=== PATIENT | male | born 1995 | race Caucasian/White ===

== ENCOUNTER 2019-01-12 16:47 | Inpatient (IN) | payer MEDICAID, SELFPAY ==
[2019-01-12 17:22] LABS: Basophils % 0.7 % (0-1.3); Hematocrit 50.7 % (39.6-49.0); Lymphocytes % 17.1 % (15.3-44.8); MPV 6.8 fL (7.6-11.3); Protime INR 1.02; RBC Red Blood Cell Count 5.53 M/uL (4.33-5.43)
[2019-01-12] MEDS ORDERED: NA CHLORIDE 0.9% 1,000 ML ONE ×2 (17:36→18:36)
--- NOTE | 2019-01-12 17:41 | EKG ---
Test Date: 2019-01-12 Test Time: 17:13:29 [address] Person: LEONARDO MEASUREMENT RESULTS: Intervals: Rate: 117 ID: [id number] QRSD: 78 QT: 324 QTc: 451 Ridge: P: 71 ID: [id number] QRS: 96 T: 4 INTERPRETIVE STATEMENTS: Sinus tachycardia Right atrial enlargement Rightward axis Septal infarct, age undetermined T wave abnormality, consider inferior ischemia Abnormal ECG No previous ECG available for comparison Electronically Signed On 01-12-19 17:41:08 CDT by Kevin Johnson
[2019-01-12 17:43] LABS: Arterial Blood Carboxyhemoglob 1.8 % (0-1.5); Blood Gas Oxyhemoglobin 94.9 % (94-97); Blood O2 Saturation 97.9 % (92-98.5)
[2019-01-12 17:44] LABS: ALT/SGPT 26 U/L (12-78); AST/SGOT 12 U/L (15-37); Albumin 4.8 g/dL (3.4-5.0); Alkaline Phosphatase 91 U/L (45-117); BUN Blood Urea Nitrogen 16 mg/dL (7-18); Bilirubin Direct 0.2 mg/dL (0-0.2); Bilirubin Total 0.7 mg/dL (0.2-1.0); Glucose Level 350 mg/dL (74-106); Magnesium 1.6 mg/dL (1.8-2.4); NT PRO-BNP 8 pg/mL (<125); Potassium 4.4 mmol/L (3.5-5.1); Protein, Total 8.2 g/dL (6.4-8.2); Sodium Level 133 mmol/L (136-145); Troponin (Emerg Dept Use Only) < 0.02 ng/mL (0.0-0.045)
[2019-01-12 17:46] LABS: Bicarbonate 12 mmol/L (21-32)
--- NOTE | 2019-01-12 17:57 | RAD REPORT ---
EXAM DESCRIPTION: RAD - Chest Single View - 01/12/2019 5:47 pm CLINICAL HISTORY: MD whitman Chest pain. COMPARISON: <Comparisons> FINDINGS: Portable technique limits examination quality. The lungs are grossly clear. The heart is normal in size. No displaced fractures. IMPRESSION: No acute intrathoracic process suspected.
--- NOTE | 2019-01-12 18:09 | ER ---
Nurse's Notes [facility] Name: Wei Hyde Age: 23 yrs Sex: Male : 1995 Arrival Date: 01/12/2019 Time: 16:50 Bed 3 Private MD: Diagnosis: Weakness;Acidosis;Diabetes mellitus due to underlying condition with ketoacidosis without coma;Hypomagnesemia Presentation: 01/12 16:50 Presenting complaint: Patient states: dizziness, fatigue x 2 days. Transition of care: sv patient was not received from another setting of care. Onset of symptoms was January 10, 2019. Risk Assessment: Do you want to hurt yourself or someone else? Patient reports no desire to harm self or others. Care prior to arrival: None. 16:50 Method Of Arrival: Ambulatory sv 16:50 Acuity: SULEIMAN 2 sv 17:15 Initial Sepsis Screen: Does the patient meet any 2 criteria? RR > 20 per min. HR > 90 aa5 bpm. Yes Does the patient have a suspected source of infection? No. Patient's initial sepsis screen is negative. Triage Assessment: 16:50 General: Appears in no apparent distress. uncomfortable, ill, slender, Behavior is sv calm, cooperative, appropriate for age. Neuro: Level of Consciousness is awake, alert, obeys commands, Gait is steady, Reports dizziness. Respiratory: Respiratory effort is even, unlabored, Respiratory pattern is tachypnea. Historical: - Allergies: 16:54 No Known Allergies; sv - PMHx: 16:54 Diabetes - IDDM; sv - PSHx: 16:54 None; sv - Immunization history:: Adult Immunizations unknown. - Social history:: Patient uses street drugs, marijuana. - Family history:: not pertinent. - Ebola Screening: : No symptoms or risks identified at this time. Screenin:15 Abuse screen: Denies threats or abuse. Nutritional screening: No deficits noted. aa5 Tuberculosis screening: No symptoms or risk factors identified. Fall Risk None identified. Assessment: 17:15 General: Appears uncomfortable, Behavior is calm, cooperative. Pain: Complains of pain aa5 in right leg and left leg Pain does not radiate. Pain currently is 10 out of 10 on a pain scale. Quality of pain is described as stabbing, Pain began "while ago" Is continuous. Neuro: Level of Consciousness is awake, alert, obeys commands, Oriented to person, place, time, situation. Cardiovascular: Heart tones S1 S2 present Rhythm is sinus tachycardia. Respiratory: Airway is patent Respiratory effort is even, unlabored, Respiratory pattern is tachypnea Breath sounds are clear bilaterally. GI: Abdomen is flat, non-distended, Bowel sounds present X 4 quads. Abd is soft and non tender X 4 quads. Reports nausea, Patient currently denies vomiting. : No signs and/or symptoms were reported regarding the genitourinary system. EENT: No signs and/or symptoms were reported regarding the EENT system. Derm: Skin is pink, warm \\T\\ dry. Musculoskeletal: Range of motion: intact in all extremities. 17:40 Reassessment: Patient is alert, oriented x 3, equal unlabored respirations, skin aa5 warm/dry/pink. Pt c/o leg pain, was notified. . 18:39 Reassessment: Patient is alert, oriented x 3, equal unlabored respirations, skin aa5 warm/dry/pink. Dr. Vides at bedside. . 19:30 Reassessment: Patient complaint of pain to bilateral legs, 8/10 on pain scale. lp1 Vital Signs: 16:54 BP 134 / 101; Pulse 138; Resp 28; Temp 97.4; Pulse Ox 99% ; Weight 61.23 kg; Height 5 sv ft. 11 in. (180.34 cm); 17:50 BP 127 / 99; Pulse 120; Resp 28 S; Pulse Ox 100% on R/A; aa5 18:15 BP 130 / 98; Pulse 116; Resp 26 S; Pulse Ox 100% on R/A; aa5 18:45 BP 135 / 97; Pulse 103; Resp 24 S; Pulse Ox 100% on R/A; Pain 10/10; aa5 19:30 BP 129 / 96; Pulse 115; Resp 22; Pulse Ox 100% on R/A; Pain 8/10; lp1 16:54 Body Mass Index 18.83 (61.23 kg, 180.34 cm) sv ED Course: 16:50 Patient arrived in ED. sv 16:53 Triage completed. sv 16:54 Arm band placed on. sv 16:56 Cuco Romero MD is Attending Physician. [facility] 17:02 Zulay Mckoy, RN is Primary Nurse. aa5 17:15 Patient has correct armband on for positive identification. Placed in gown. Bed in low aa5 position. Call light in reach. Side rails up X2. hall monitor on. Pulse ox on. NIBP on. 17:22 EKG done, by medical surgical tech. reviewed by Cuco Romero MD. 3 17:22 Initial lab(s) drawn, by il, sent to lab. Inserted saline lock: 20 gauge in right em1 forearm, using aseptic technique. Blood collected. 17:48 XRAY Chest (1 view) In Process Unspecified. EDMS 18:05 Quan Armando MD is Hospitalizing Provider. deana 18:48 Inserted saline lock: 20 gauge in left forearm, using aseptic technique. aa5 19:00 No provider procedures requiring assistance completed. aa5 19:02 Report given to RIAZ Garrido and RIAZ Pringle. aa5 19:34 Patient admitted, IV remains in place. lp1 Administered Medications: 17:40 Drug: NS 0.9% 1000 ml Route: IV; Rate: 1 bolus; Site: right forearm; aa5 18:30 Follow up: IV Status: Completed infusion; IV Intake: 1000ml aa5 17:59 CANCELLED (Duplicate Order): Insulin Regular Human 10 units IVP once deana 18:39 Drug: Insulin Drip - (Insulin Regular Human 100 units, NS 0.9% 100 ml) {Co-Signature: aa5 ph (Stephanie Wood RN).} Route: IV; Rate: 5 units/hr; Site: right forearm; 18:39 Follow up: Infusion started at 5units/hr aa5 19:19 Follow up: IV Status: Infusion continued upon admission lp1 18:48 Drug: NS 0.9% 1000 ml Route: IV; Rate: 125 ml/hr; Site: left forearm; aa5 19:19 Follow up: IV Status: Infusion continued upon admission lp1 18:48 Drug: Magnesium Sulfate 2 grams Route: IVPB; Infused Over: 2 hrs; Site: left forearm; aa5 19:19 Follow up: IV Status: Infusion continued upon admission lp1 19:29 Drug: morphine 4 mg Route: IVP; Site: right forearm; lp1 19:35 Follow up: Response: Medication administered at discharge. lp1 19:29 Drug: Zofran 4 mg Route: IVP; Site: right forearm; lp1 19:35 Follow up: Response: No adverse reaction; Medication administered at discharge. lp1 Intake: 18:30 IV: 1000ml; Total: 1000ml. aa5 Outcome: 18:08 Decision to Hospitalize by Provider. deana 19:34 Admitted to ICU accompanied by nurse, via stretcher, room 2, on monitor, with chart, lp1 Report called to Jovana Dalton RN 19:34 critical 19:34 Instructed on the need for admit. 19:43 Patient left the ED. lp1 Signatures: Dispatcher [employer] EDJackie Sosa, RN RN Cuco Justin MD MD cha Martinez, Eric em1 uZlay Mckoy RN RN aa5 Yary Reyna RN RN lp1 Katarzyna Koroma 3 Stephanie Wood RN ph
--- NOTE | 2019-01-12 18:09 | EDPHYS ---
Physician Documentation [facility] Name: Wei Hyde Age: 23 yrs Sex: Male : 1995 Arrival Date: 01/12/2019 Time: 16:50 Bed 3 Private MD: ED Physician Cuco Romero HPI: 01/12 18:01 This 23 yrs old Male presents to ER via Ambulatory with complaints of deana Dizziness. 18:01 The patient presents with dizziness, feeling faint, generalized weakness. Onset: The deana symptoms/episode began/occurred 3 day(s) ago. Context: occurred at home. Modifying factors: The symptoms are alleviated by nothing. Associated signs and symptoms: Pertinent positives: nausea, vomiting. Severity of symptoms: At their worst the symptoms were moderate in the emergency department the symptoms are unchanged. Patient's baseline: Neuro: alert and fully oriented. The patient has not experienced similar symptoms in the past. Historical: - Allergies: 16:54 No Known Allergies; sv - PMHx: 16:54 Diabetes - IDDM; sv - PSHx: 16:54 None; sv - Immunization history:: Adult Immunizations unknown. - Social history:: Patient uses street drugs, marijuana. - Family history:: not pertinent. - Ebola Screening: : No symptoms or risks identified at this time. ROS: 18:01 Constitutional: Negative for fever, chills, and weight loss, Eyes: Negative for injury, deana pain, redness, and discharge, ENT: Negative for injury, pain, and discharge, Neck: Negative for injury, pain, and swelling, Respiratory: Negative for shortness of breath, cough, wheezing, and pleuritic chest pain, Abdomen/GI: Negative for abdominal pain, nausea, vomiting, diarrhea, and constipation, Back: Negative for injury and pain, : Negative for injury, bleeding, discharge, and swelling, MS/Extremity: Negative for injury and deformity, Skin: Negative for injury, rash, and discoloration, Neuro: Negative for headache, weakness, numbness, tingling, and seizure, Psych: Negative for depression, anxiety, suicide ideation, homicidal ideation, and hallucinations, Allergy/Immunology: Negative for hives, rash, and allergies, Endocrine: Negative for neck swelling, polydipsia, polyuria, polyphagia, and marked weight changes, Hematologic/Lymphatic: Negative for swollen nodes, abnormal bleeding, and unusual bruising. 18:01 Cardiovascular: Positive for palpitations. 18:01 Abdomen/GI: Positive for nausea and vomiting. Exam: 18:01 Constitutional: This is a well developed, well nourished patient who is awake, alert, deana and in no acute distress. Head/Face: Normocephalic, atraumatic. Eyes: Pupils equal round and reactive to light, extra-ocular motions intact. Lids and lashes normal. Conjunctiva and sclera are non-icteric and not injected. Cornea within normal limits. Periorbital areas with no swelling, redness, or edema. ENT: Nares patent. No nasal discharge, no septal abnormalities noted. Tympanic membranes are normal and external auditory canals are clear. Oropharynx with no redness, swelling, or masses, exudates, or evidence of obstruction, uvula midline. Mucous membranes moist. Neck: Trachea midline, no thyromegaly or masses palpated, and no cervical lymphadenopathy. Supple, full range of motion without nuchal rigidity, or vertebral point tenderness. No Meningismus. Chest/axilla: Normal chest wall appearance and motion. Nontender with no deformity. No lesions are appreciated. Respiratory: Lungs have equal breath sounds bilaterally, clear to auscultation and percussion. No rales, rhonchi or wheezes noted. No increased work of breathing, no retractions or nasal flaring. Abdomen/GI: Soft, non-tender, with normal bowel sounds. No distension or tympany. No guarding or rebound. No evidence of tenderness throughout. Back: No spinal tenderness. No costovertebral tenderness. Full range of motion. Male : Normal genitalia with no discharge or lesions. Skin: Warm, dry with normal turgor. Normal color with no rashes, no lesions, and no evidence of cellulitis. MS/ Extremity: Pulses equal, no cyanosis. Neurovascular intact. Full, normal range of motion. Neuro: Awake and alert, GCS 15, oriented to person, place, time, and situation. Cranial nerves II-XII grossly intact. Motor strength 5/5 in all extremities. Sensory grossly intact. Cerebellar exam normal. Normal gait. Psych: Awake, alert, with orientation to person, place and time. Behavior, mood, and affect are within normal limits. 18:01 Cardiovascular: Rate: tachycardic, Rhythm: regular, Pulses: Pulses are 4+ in bilateral radial, brachial, femoral, popliteal, posterior tibial and and dorsalis pedis arteries.. Heart sounds: normal, normal S1and S2, no S3 or S4, no murmur, no rub, no gallop, JVD: is not appreciated. Vital Signs: 16:54 BP 134 / 101; Pulse 138; Resp 28; Temp 97.4; Pulse Ox 99% ; Weight 61.23 kg; Height 5 sv ft. 11 in. (180.34 cm); 17:50 BP 127 / 99; Pulse 120; Resp 28 S; Pulse Ox 100% on R/A; aa5 18:15 BP 130 / 98; Pulse 116; Resp 26 S; Pulse Ox 100% on R/A; aa5 18:45 BP 135 / 97; Pulse 103; Resp 24 S; Pulse Ox 100% on R/A; Pain 10/10; aa5 19:30 BP 129 / 96; Pulse 115; Resp 22; Pulse Ox 100% on R/A; Pain 8/10; lp1 16:54 Body Mass Index 18.83 (61.23 kg, 180.34 cm) sv MDM: 16:56 Patient medically screened. [facility] 18:01 Data reviewed: vital signs, nurses notes, lab test result(s), EKG, radiologic studies, deana plain films. 01/12 17:03 Order name: Basic Metabolic Panel; Complete Time: 17:59 aa 01/12 17:03 Order name: CBC with Diff; Complete Time: 17:59 [facility] 01/12 17:03 Order name: LFT's; Complete Time: 17:59 5 01/12 17:03 Order name: Magnesium; Complete Time: 17:59 aa5 01/12 17:03 Order name: NT PRO-BNP; Complete Time: 17:59 5 01/12 17:03 Order name: PT-INR; Complete Time: 17:59 aa5 01/12 17:03 Order name: Troponin (emerg Dept Use Only); Complete Time: 17:59 aa 01/12 17:11 Order name: Glucose, Ancillary Testing; Complete Time: 17:16 EDMS 01/12 17:16 Order name: ABG; Complete Time: 17:59 [facility] 01/12 17:16 Order name: Blood Culture Adult (2) [facility] 01/12 17:29 Order name: Glucose, Ancillary Testing; Complete Time: 17:59 EDMS 01/12 18:25 Order name: Osmolality, Serum EDMS 01/12 18:27 Order name: Acetone Level EDMS 01/12 19:26 Order name: Glucose, Ancillary Testing EDMS 01/12 17:03 Order name: XRAY Chest (1 view); Complete Time: 18:13 aa 01/12 17:03 Order name: EKG; Complete Time: 17:04 [facility] 01/12 17:03 Order name: Cardiac monitoring; Complete Time: 17:33 aa5 01/12 17:03 Order name: EKG - Nurse/Tech; Complete Time: 17:33 aa5 01/12 17:03 Order name: IV Saline Lock; Complete Time: 17:22 aa 01/12 17:03 Order name: Labs collected and sent; Complete Time: 17:22 aa 01/12 17:03 Order name: O2 Per Protocol; Complete Time: 17:33 aa5 01/12 17:03 Order name: O2 Sat Monitoring; Complete Time: 17:33 [facility] 01/12 18:14 Order name: IV Saline Lock - Large Bore; Complete Time: 18:30 deana Administered Medications: 17:40 Drug: NS 0.9% 1000 ml Route: IV; Rate: 1 bolus; Site: right forearm; aa5 18:30 Follow up: IV Status: Completed infusion; IV Intake: 1000ml aa5 17:59 CANCELLED (Duplicate Order): Insulin Regular Human 10 units IVP once deana 18:39 Drug: Insulin Drip - (Insulin Regular Human 100 units, NS 0.9% 100 ml) {Co-Signature: aa5 ph (Stephanie Wood RN).} Route: IV; Rate: 5 units/hr; Site: right forearm; 18:39 Follow up: Infusion started at 5units/hr aa5 19:19 Follow up: IV Status: Infusion continued upon admission lp1 18:48 Drug: NS 0.9% 1000 ml Route: IV; Rate: 125 ml/hr; Site: left forearm; aa5 19:19 Follow up: IV Status: Infusion continued upon admission lp1 18:48 Drug: Magnesium Sulfate 2 grams Route: IVPB; Infused Over: 2 hrs; Site: left forearm; aa5 19:19 Follow up: IV Status: Infusion continued upon admission lp1 19:29 Drug: morphine 4 mg Route: IVP; Site: right forearm; lp1 19:35 Follow up: Response: Medication administered at discharge. lp1 19:29 Drug: Zofran 4 mg Route: IVP; Site: right forearm; lp1 19:35 Follow up: Response: No adverse reaction; Medication administered at discharge. lp1 Disposition: 01/12/19 18:08 Hospitalization ordered by Quan Armando for Inpatient Admission. Preliminary diagnosis are Weakness, Acidosis, Diabetes mellitus due to underlying condition with ketoacidosis without coma, Hypomagnesemia. - Bed requested for Intensive Care Unit. - Status is Inpatient Admission. lp1 - Condition is Fair. - Problem is new. - Symptoms have improved. UTI on Admission? No Signatures: Dispatcher [employer] EDDanitza Hooker Stephanie RN RN Cuco Justin MD MD cha Calderon, Audri, RN RN aa5 Yary Reyna RN RN lp1 Stephanie Wood RN ph Corrections: (The following items were deleted from the chart) 17:59 17:59 Insulin Regular Human 10 units IVP once ordered. [facility] 18:17 18:08 Hospitalization Ordered by Quan Armando MD for Inpatient Admission. Preliminary [facility] diagnosis is Weakness; Acidosis; Diabetes mellitus due to underlying condition with ketoacidosis without coma. Bed requested for Intensive Care Unit. Status is Inpatient Admission. Condition is Fair. Problem is new. Symptoms have improved. UTI on Admission? No. [facility] 18:50 18:17 01/12/2019 18:08 Hospitalization Ordered by Quan Armando MD for Inpatient bd Admission. Preliminary diagnosis is Weakness; Acidosis; Diabetes mellitus due to underlying condition with ketoacidosis without coma; Hypomagnesemia. Bed requested for Intensive Care Unit. Status is Inpatient Admission. Condition is Fair. Problem is new. Symptoms have improved. UTI on Admission? No. [facility] 19:43 18:50 01/12/2019 18:08 Hospitalization Ordered by Quan Armando MD for Inpatient lp1 Admission. Preliminary diagnosis is Weakness; Acidosis; Diabetes mellitus due to underlying condition with ketoacidosis without coma; Hypomagnesemia. Bed requested for Intensive Care Unit. Status is Inpatient Admission. Condition is Fair. Problem is new. Symptoms have improved. UTI on Admission? No.
[2019-01-12] MEDS ORDERED: GLUCAGON 1 MG/VIAL IM PRN (18:14)
[2019-01-12] MEDS ORDERED: D50W 25 GM/50 ML SYRINGE IV PRN (18:14)
[2019-01-12] MEDS ORDERED: INSULIN -REGULAR HUMAN 100 UNIT in NA CHLORIDE 0.9% 100 ML IV SCH (18:15)
[2019-01-12] MEDS ORDERED: Magnesium Sulfate 2gm IVPB 2 G/50 ML BAG IV ONE (18:36)
--- NOTE | 2019-01-12 19:07 | P.HP ---
Certification for Inpatient Patient admitted to: Inpatient With expected LOS: >2 Midnights Practitioner: I am a practitioner with admitting privileges, knowledge of patient current condition, hospital course, and medical plan of care. Services: Services provided to patient in accordance with Admission requirements found in Title 42 Section 412.3 of the Code of Federal Regulations Patient History Date of Service: 01/12/19 Primary Care Provider: Balbir Ray Reason for admission: Nausea, vomiting, fatigue History of Present Illness: 23-year-old male with history of type 1 diabetes presented to the emergency room with nausea, vomiting and fatigue. Patient reports increased nausea, vomiting and fatigue over the last 1-2 days. Patient with history of type 1 diabetes. Patient takes NovoLog 70/30 45 units 3 times a day. Patient had not been checking his blood sugar closely. His symptoms got worse. Patient reports no fever, chest pain or shortness of breath. He came to ER for further evaluation. In the ER patient was evaluated. Patient found to have DKA. Blood sugar 376. Sodium 133, potassium 4.4, chloride 101. BUN 16, creatinine 1.04 with a GFR rate is 9. Magnesium 1.6, troponin less than 0.02. White count 11.6, hemoglobin 17.5. Blood gases showed pH 7.7-3, P CO2 of 19, PO2 124 bicarb is 7.7. Patient was started on DKA protocol. Patient admitted to ICU for further evaluation and treatment. When I saw the patient in the ER, patient appeared stable. Patient reports this is his 1st time of DKA. Allergies Unable to Assess Allergy (Unverified 07/02/12 21:39) Home medications list reviewed: Yes - Past Medical/Surgical History Diabetic: Yes -: DM Type 1 -: Tobacco abuse -: Marijuana use Past Surgical History: Patient denies surgical history Psychosocial/ Personal History: Patient is single. He has no children. He does not work. - Family History Mother -: Diabetes - Social History Smoking Status: Heavy Tobacco smoker (>10 cigarettes/day) Counseled patient to stop smoking for: less than 10 minutes Smoking therapy provided: Yes Patient receptive to therapy: Yes Alcohol use: Yes CD- Drugs: Yes Caffeine use: Yes Place of Residence: Home Review of Systems General: Weakness, Malaise, As per HPI Eyes: Unremarkable ENT: Unremarkable Respiratory: Unremarkable Cardiovascular: Unremarkable Gastrointestinal: Nausea, Vomiting, Unremarkable Genitourinary: Unremarkable Musculoskeletal: Unremarkable Integumentary: Unremarkable Neurological: Unremarkable Lymphatics: Unremarkable Physical Examination - Physical Exam General: Alert, In no apparent distress, Oriented x3, Cooperative HEENT: Atraumatic, Normocephalic, PERRLA, Other (Dry mucous membranes) Neck: Supple, No Thyromegaly Respiratory: Clear to auscultation bilaterally, Normal air movement Cardiovascular: Abnormal S3, No gallops, No rubs, No murmurs, Abnormal pulses ( Mild sinus tachycardia) Gastrointestinal: No ascites, No tenderness, No masses, No rebound, No guarding Musculoskeletal: No erythema, No tenderness, No warmth Integumentary: No tenderness/swelling, No erythema, No warmth, No cyanosis Neurological: Normal speech, Normal strength at 5/5 x4 extr, Normal tone, Normal affect - Studies Laboratory Data (last 24 hrs) 01/12/19 17:10: PT 12.0, INR 1.02 01/12/19 17:10: WBC 11.6 H, Hgb 17.5, Hct 50.7 H, Plt Count 338 01/12/19 17:10: Sodium 133 L, Potassium 4.4, BUN 16, Creatinine 1.04, Glucose 350 H, Magnesium 1.6 L, Total Bilirubin 0.7, AST 12 L, ALT 26, Alkaline Phosphatase 91 Assessment and Plan - Plan Impression: Nausea, vomiting and fatigue secondary to Diabetic ketoacidosis with history of type 1 diabetes Tobacco abuse Marijuana use Plan: Nausea, vomiting and fatigue secondary to Diabetic ketoacidosis with history of type 1 diabetes: Patient will be admitted to ICU. DKA protocol in place. Patient continue with the IV insulin. Continue with IV fluids. Will monitor electrolytes closely. Once anion gap has closed and bicarb improved and will transition to his regular regimen. Patient normally takes NovoLog 70/30 45 units 3 times a day with Novolin sliding scale. Will continue monitor the patient closely. Electrolyte protocol in place. Dr. Armando will take over tomorrow. I will go over the plan of care with him. Tobacco abuse: Will provide nicoderm. Marijuana use: Will check UDS. Discharge Plan: Home Plan to discharge in: 48 Hours - Advance Directives Does patient have a Living Will: No Does patient have a Durable POA for Healthcare: No - Code Status/Comfort Care Code Status Assessed: Yes (Patient is full code) Time Spent Managing Pts Care (In Minutes): 55
[2019-01-12] MEDS ORDERED: ONDANSETRON 4 MG/2 ML VIAL ONE (19:23)
[2019-01-12] MEDS ORDERED: MORPHINE 4 MG/ML SYR ONE (19:23)
[2019-01-12] MEDS ORDERED: ONDANSETRON 4 MG/2 ML VIAL IV PRN (19:41)
[2019-01-12] MEDS ORDERED: NA CHLORIDE 0.9% 1,000 ML IV ONE (19:41)
[2019-01-12 20:00] VITALS: BMI 17.9
[2019-01-12] MEDS: NACHLORIDE 0.45% 1,000 ML IV SCH (21:22)
[2019-01-12 21:41] LABS: BUN Blood Urea Nitrogen 13 mg/dL (7-18); Glucose Level 217 mg/dL (74-106); Sodium Level 140 mmol/L (136-145)
[2019-01-12 21:42] LABS: Bicarbonate 13 mmol/L (21-32)
[2019-01-12] MEDS: D5 0.45 NS 1,000 ML IV SCH (22:01)
[2019-01-12 22:21] LABS: Barbiturates NEGATIVE (NEGATIVE); Benzodiazepines NEGATIVE (NEGATIVE); Cocaine NEGATIVE (NEGATIVE); METHAMPHETAM NEGATIVE (NEGATIVE); Methadone NEGATIVE (NEGATIVE); Opiates NEGATIVE (NEGATIVE); Phencyclidine NEGATIVE (NEGATIVE); THC Cannibis POSITIVE (NEGATIVE)
[2019-01-13 01:26] LABS: BUN Blood Urea Nitrogen 12 mg/dL (7-18); Bicarbonate 18 mmol/L (21-32); Glucose Level 189 mg/dL (74-106); Potassium 3.6 mmol/L (3.5-5.1); Sodium Level 136 mmol/L (136-145)
[2019-01-13] MEDS: NACHLORIDE 0.45% 1,000 ML IV SCH ×3 (02:21→11:39)
[2019-01-13] MEDS: D5 0.45 NS 1,000 ML IV SCH (02:21)
[2019-01-13 05:09] LABS: Absolute Lymphocytes (CBC) 3.4 K/uL (0.7-4.9); Basophils % 0.4 % (0-1.3); Hematocrit 41.4 % (39.6-49.0); Lymphocytes % 34.4 % (15.3-44.8); MPV 6.8 fL (7.6-11.3); RBC Red Blood Cell Count 4.67 M/uL (4.33-5.43)
[2019-01-13 05:33] LABS: BUN Blood Urea Nitrogen 13 mg/dL (7-18); Bicarbonate 23 mmol/L (21-32); Glucose Level 219 mg/dL (74-106); HDL Cholesterol 34 mg/dL (40-60); LDL Cholesterol, Calculated 104 (<130); Magnesium 1.8 mg/dL (1.8-2.4); Potassium 3.5 mmol/L (3.5-5.1); Sodium Level 139 mmol/L (136-145); Thyroid Stimulating Hormone 0.794 uIU/mL (0.360-3.740)
[2019-01-13] MEDS ORDERED: INSULIN GLARGINE 100 UNITS/ML SQ ONE (06:13)
[2019-01-13] MEDS ORDERED: POTASSIUM CL SA 10 MEQ TAB PO ONE (06:27)
[2019-01-13] MEDS ORDERED: MAGNESIUM SULFATE 1 gm IVPB 1 GM/100 ML BAG IV ONE (06:27)
[2019-01-13] MEDS ORDERED: INFLUENZA VACCINE (for 3y+) 0.5 ML DOSE IMVAC ONE (08:00)
[2019-01-13] MEDS: INSULIN -REGULAR HUMAN 50 UNIT/0.5 ML ML SQ SCH ×2 (08:38→11:38)
[2019-01-13] MEDS ORDERED: NICOTINE 21 MG/PAT TD SCH (09:00)
[2019-01-13] MEDS ORDERED: ENOXAPARIN 40 MG/0.4 ML SQ SCH (09:00)
[2019-01-13 16:13] VITALS: BP 109/74; TEMP 98.9
[2019-01-13 17:13] VITALS: O2SAT 99
--- NOTE | 2019-01-14 14:17 | DS ---
Date of Discharge: 01/13/2019 Discharge Diagnoses: 1.Diabetic ketoacidosis, type 1 diabetic. 2.Nausea and vomiting. 3.Generalized malaise and fatigue. 4.Nicotine dependence with cigarette smoking, counseled. 5.Marijuana abuse, counseled. Hospital Course: Patient is a 23-year-old male with past medical history of type 1 diabetes, diagnos ed 3 years ago, who has been out of his medications and has not been checking his blood glucose level as well, has had recent weight loss, comes in with a blood sugar of 376, found to have DKA. He was acidotic. Patient was started on IV insulin and was admitted to the ICU. Serial BMP levels were ingrid cked and his anion gap eventually closed. His hemoglobin A1c was 10.4. His acetone levels cleared u p. His UDS was positive for marijuana and the patient was counseled regarding the use of marijuana. His triglyceride levels were within normal limits. Patient was given several liters of IV fluids an d continued with IV hydration. Patient's chest x-ray was clear. Once the patient's anion gap was cl osed, he was switched over to subcutaneous insulin with long-acting Lantus 30 units and sliding scale insulin. Patient did well. His blood glucose levels remained stable. He was able to tolerate his diet. He no longer had any further nausea, vomiting, fatigue. Able to ambulate. He was then cleare d for discharge. The patient was counseled regarding nicotine use, marijuana use, and to monitor his blood glucose levels closely at least 3 times a day. He will be discharged on long-acting insulin a nd short-acting insulin with meals. He was instructed to not skip any meals. He knows how to monito r for signs of hypoglycemia and to have some sort of orange juice, crackers, or peanut butter with hi m in case he becomes hypoglycemic. He will need to establish care with a primary care physician, мария donnellytly going to the [facility]. He was also given a prescription card and the list of PCPs by john hussein social media editor. He was also set up with the diabetic education at [facility] and outpatient. Mayelin amber understands the long-term consequences of uncontrolled diabetes including retinopathy, neuropathy, nephropathy amongst others and understands that he is very young and could have significant complica tions from uncontrolled diabetes including amputation, above-mentioned complications amongst others. The patient voiced understanding. The patient was then cleared for discharge and sent home in a sta ble condition. Activity: As tolerated. Medications: As per medication reconciliation list. Followup: Follow up with primary care physician in 1 week. Return to ER for worsening condition. Sy dale up with diabetic education at [facility] outpatient. Diet: Diabetic diet. Physical Examination: General: Awake, alert, oriented x3. No acute distress. Frail cachectic male. BMI 17.9. CV: S1, S2. Respiratory: Moving air well bilaterally. Abdomen: Soft, nontender, nondistended. Positive bowel sounds. Extremities: No clubbing, cyanosis, or edema. Neurologic: Nonfocal. Total time spent discharging the patient was 42 minutes. /ROXANE Voice ID: [id number] Report ID: [id number]
--- OUTSIDE RECORDS SUMMARY | 2019-01-24 15:41 | XMS REPORT ---
:1995 [facility] Address [address] [place] [address] Dr. [address] [place] [id number] Care Team Providers Name Role Phone Unavailable Unavailable Unavailable Problems This patient has no known problems. Allergies, Adverse Reactions, Alerts This patient has no known allergies or adverse reactions. Medications This patient has no known medications.
== END 2019-01-13 16:51 | disposition home or self-care (01) | DRG 639 ==
LOC: ER 16:47 → ERHOLD 18:18 → 3RD-ICU 19:39
PROVIDERS: ADMIT Family Medicine; ATTEND Family Medicine
DX: E10.10 Type 1 diabetes mellitus with ketoacidosis without coma (principal); F17.210 Nicotine dependence, cigarettes, uncomplicated; F12.10 Cannabis abuse, uncomplicated; Z23 Encounter for immunization
CPT/HCPCS: 36415; 71045; 80048; 80061; 80076; 80307; 82010; 82805; 82947; 83036; 83735; 83880; 83930; 84443; 84484; 85025; 85610; 87040; 90471; 93005; 96361; 96365; 96368; 96375; 99285; J1650; J1815; J2405; J3475; J7030; J7799; Q2035

== ENCOUNTER 2019-02-07 19:13 | Emergency (ER) | payer SELFPAY ==
--- OUTSIDE RECORDS SUMMARY | 2019-02-07 19:16 | XMS REPORT ---
:1995 [facility] Address [address] [place] [address] Dr. L[address] [place] [id number] Care Team Providers Name Role Phone Unavailable Unavailable Unavailable Problems This patient has no known problems. Allergies, Adverse Reactions, Alerts This patient has no known allergies or adverse reactions. Medications This patient has no known medications.
[2019-02-07] MEDS ORDERED: KETOROLAC 30 MG/ML INJ ONE (19:47)
--- NOTE | 2019-02-07 21:11 | ER ---
Nurse's Notes [facility] Name: Wei Hyde Age: 24 yrs Sex: Male : 1995 Arrival Date: 02/07/2019 Time: 19:16 Bed 24 Private MD: Diagnosis: Sprain of ligaments of cervical spine;Muscle spasm of back Presentation: 02/07 19:35 Presenting complaint: Patient states: neck and upper back pain since yesterday, pain tl2 increased with palpation. Pt also reports chronic leg pain for past few months. Transition of care: patient was not received from another setting of care. Onset of symptoms was February 06, 2019. Risk Assessment: Do you want to hurt yourself or someone else? Patient reports no desire to harm self or others. Initial Sepsis Screen: Does the patient meet any 2 criteria? HR > 90 bpm. Does the patient have a suspected source of infection? No. Patient's initial sepsis screen is negative. Care prior to arrival: None. 19:35 Method Of Arrival: Ambulatory tl2 19:35 Acuity: SULEIMAN 3 tl2 Triage Assessment: 19:37 General: Appears in no apparent distress. uncomfortable, Behavior is calm, cooperative. tl2 Pain: Complains of pain in back of neck and posterior chest. Historical: - Allergies: 19:37 No Known Allergies; tl2 - Home Meds: 19:37 Novolin N 100 unit/mL Sub-Q susp [Active]; Novolog 100 unit/mL Sub-Q soln [Active]; tl2 - PMHx: 19:37 Diabetes - IDDM; tl2 - PSHx: 19:37 None; tl2 - Immunization history:: Adult Immunizations up to date. - Social history:: Smoking status: Patient/guardian denies using tobacco, the patient reports quitting approximately .4 years ago. - Ebola Screening: : No symptoms or risks identified at this time. Screenin:38 Abuse screen: Denies threats or abuse. Nutritional screening: No deficits noted. tl2 Tuberculosis screening: No symptoms or risk factors identified. Fall Risk Gait- Weak (10 pts.). Assessment: 20:00 General: Appears in no apparent distress. Behavior is calm, cooperative, appropriate tr5 for age. Pain:. Neuro: Level of Consciousness is awake, alert, obeys commands, Oriented to person, place, time, Draw Bench Operator Helper are equal bilaterally. Cardiovascular: Heart tones present Capillary refill < 3 seconds Pulses are all present. Edema is absent. Respiratory: Airway is patent Respiratory effort is even, unlabored, Respiratory pattern is regular, symmetrical. GI: No signs and/or symptoms were reported involving the gastrointestinal system. : No signs and/or symptoms were reported regarding the genitourinary system. EENT: No signs and/or symptoms were reported regarding the EENT system. Derm: No signs and/or symptoms reported regarding the dermatologic system. Musculoskeletal: No signs and/or symptoms reported regarding the musculoskeletal system. Vital Signs: 19:37 BP 147 / 90; Pulse 114; Resp 20; Temp 97.5(O); Pulse Ox 100% on R/A; Weight 60.78 kg; tl2 Height 5 ft. 11 in. (180.34 cm); Pain 8/10; 20:58 BP 119 / 87; Pulse 99; Resp 16; Pulse Ox 99% on R/A; tr5 19:37 Body Mass Index 18.69 (60.78 kg, 180.34 cm) tl2 ED Course: 19:16 Patient arrived in ED. cf2 19:25 Edward Tang RN is Primary Nurse. tr5 19:27 Dirk Raza MD is Attending Physician. tw4 19:36 Triage completed. tl2 19:37 Arm band placed on right wrist. tl2 19:38 Patient has correct armband on for positive identification. Placed in gown. Bed in low tl2 position. Call light in reach. Side rails up X 1. 21:19 No provider procedures requiring assistance completed. Patient did not have IV access tr5 during this emergency room visit. Administered Medications: 19:51 Drug: TORadol 60 mg Route: IM; Site: right deltoid; tr5 Outcome: 21:10 Discharge ordered by . tw4 21:19 Discharged to home ambulatory. tr5 21:19 Condition: stable 21:19 Discharge instructions given to patient, Instructed on discharge instructions, follow up and referral plans. Demonstrated understanding of instructions, follow-up care, medications, Prescriptions given X 2. 21:22 Patient left the ED. tr5 Signatures: Ayala Chandra RN RN tl2 Dirk Raza MD MD tw4 Edward Tang RN RN tr5 Ladonna Patel cf2
--- NOTE | 2019-02-07 21:11 | EDPHYS ---
Physician Documentation [facility] Name: Wei Hyde Age: 24 yrs Sex: Male : 1995 Arrival Date: 02/07/2019 Time: 19:16 Bed 24 Private MD: ED Physician iDrk Raza HPI: 02/08 04:40 This 24 yrs old Male presents to ER via Ambulatory with complaints of Neck tw4 Pain, <24hrs Old. 04:40 The patient or guardian complains of pain, that is acute. tw4 04:41 The symptoms are located on the right posterior aspect of neck and left posterior tw4 aspect of neck. Onset: The symptoms/episode began/occurred yesterday. Context: The problem was sustained at home, The neck injury/problem resulted from from unknown cause. Associated signs and symptoms: The patient has no apparent associated signs or symptoms. The pain does not radiate. The patient has not experienced similar symptoms in the past. Historical: - Allergies: 02/07 19:37 No Known Allergies; tl2 - Home Meds: 19:37 Novolin N 100 unit/mL Sub-Q susp [Active]; Novolog 100 unit/mL Sub-Q soln [Active]; tl2 - PMHx: 19:37 Diabetes - IDDM; tl2 - PSHx: 19:37 None; tl2 - Immunization history:: Adult Immunizations up to date. - Social history:: Smoking status: Patient/guardian denies using tobacco, the patient reports quitting approximately .4 years ago. - Ebola Screening: : No symptoms or risks identified at this time. ROS: 02/08 04:41 Constitutional: Negative for fever, chills, and weight loss, Eyes: Negative for injury, tw4 pain, redness, and discharge, Cardiovascular: Negative for chest pain, palpitations, and edema, Respiratory: Negative for shortness of breath, cough, wheezing, and pleuritic chest pain, Abdomen/GI: Negative for abdominal pain, nausea, vomiting, diarrhea, and constipation, Back: Negative for injury and pain, MS/Extremity: Negative for injury and deformity, Skin: Negative for injury, rash, and discoloration. Neck: Positive for pain with movement, pain at rest, stiffness, Negative for injury or acute deformity. 04:41 Neuro: Negative for headache, weakness, numbness, tingling, and seizure. tw4 Exam: 04:41 Constitutional: This is a well developed, well nourished patient who is awake, alert, tw4 and in no acute distress. Head/Face: Normocephalic, atraumatic. Eyes: Pupils equal round and reactive to light, extra-ocular motions intact. Lids and lashes normal. Conjunctiva and sclera are non-icteric and not injected. Cornea within normal limits. Periorbital areas with no swelling, redness, or edema. Chest/axilla: Normal chest wall appearance and motion. Nontender with no deformity. No lesions are appreciated. Cardiovascular: Regular rate and rhythm with a normal S1 and S2. No gallops, murmurs, or rubs. Normal PMI, no JVD. No pulse deficits. Respiratory: Lungs have equal breath sounds bilaterally, clear to auscultation and percussion. No rales, rhonchi or wheezes noted. No increased work of breathing, no retractions or nasal flaring. Abdomen/GI: Soft, non-tender, with normal bowel sounds. No distension or tympany. No guarding or rebound. No evidence of tenderness throughout. Skin: Warm, dry with normal turgor. Normal color with no rashes, no lesions, and no evidence of cellulitis. MS/ Extremity: Pulses equal, no cyanosis. Neurovascular intact. Full, normal range of motion. Neuro: Awake and alert, GCS 15, oriented to person, place, time, and situation. Cranial nerves II-XII grossly intact. Motor strength 5/5 in all extremities. Sensory grossly intact. Cerebellar exam normal. Normal gait. 04:41 Neck: External neck: swelling, that is moderate, of the left trapezius and right trapezius, tenderness, C-spine: no acute changes, ROM/movement: limited range of motion, that is moderate, in any direction. Vital Signs: 02/07 19:37 BP 147 / 90; Pulse 114; Resp 20; Temp 97.5(O); Pulse Ox 100% on R/A; Weight 60.78 kg; tl2 Height 5 ft. 11 in. (180.34 cm); Pain 8/10; 20:58 BP 119 / 87; Pulse 99; Resp 16; Pulse Ox 99% on R/A; tr5 19:37 Body Mass Index 18.69 (60.78 kg, 180.34 cm) tl2 MDM: 19:27 Patient medically screened. tw4 02/08 04:43 Differential diagnosis: arthritis, Cervical Disc Herniation cervical strain, Neck tw4 Contusion. Data reviewed: vital signs, nurses notes. Data interpreted: Pulse oximetry: Interpretation: normal. Counseling: I had a detailed discussion with the patient and/or guardian regarding: the historical points, exam findings, and any diagnostic results supporting the discharge/admit diagnosis. Medical screen evaluation completed. [facility] emergency medical condition absent. Medication response: Toradol markedly relieved the patient's pain. Response to treatment: and as a result, I will discharge patient. Special discussion: I discussed with the patient/guardian in detail that at this point there is no indication for admission to the hospital. It is understood, however, that if the symptoms persist or worsen the patient needs to return immediately for re-evaluation. Administered Medications: 02/07 19:51 Drug: TORadol 60 mg Route: IM; Site: right deltoid; tr5 Disposition: 02/07/19 21:10 Discharged to Home. Impression: Sprain of ligaments of cervical spine, Muscle spasm of back. - Condition is Stable. - Discharge Instructions: Muscle Cramps and Spasms, Cervical Sprain. - Prescriptions for Ibuprofen 800 mg Oral Tablet - take 1 tablet by ORAL route every 8 hours As needed take with food; 30 tablet. Cyclobenzaprine 10 mg Oral Tablet - take 1 tablet by ORAL route every 8 hours As needed; 30 tablet. - Medication Reconciliation Form, Thank You Letter, Antibiotic Education, Prescription Opioid Use form. - Follow up: Private Physician; When: Upon discharge from the Emergency Department; Reason: Recheck today's complaints, Continuance of care. - Problem is new. - Symptoms have improved. Signatures: Ayala Chandra RN RN tl2 Dirk Raza MD MD tw4 Edward Tang RN RN tr5 Corrections: (The following items were deleted from the chart) 21:22 21:10 02/07/2019 21:10 Discharged to Home. Impression: Sprain of ligaments of cervical tr5 spine; Muscle spasm of back. Condition is Stable. Forms are Medication Reconciliation Form, Thank You Letter, Antibiotic Education, Prescription Opioid Use. Follow up: Private Physician; When: Upon discharge from the Emergency Department; Reason: Recheck today's complaints, Continuance of care. Problem is new. Symptoms have improved. tw4
[2019-02-07 21:46] VITALS: TEMP 97.5
[2019-02-07 21:47] VITALS: BP 119/87; O2SAT 99
== END 2019-02-07 21:22 | disposition home or self-care (01) ==
LOC: ER 19:13
DX: S13.4XXA Sprain of ligaments of cervical spine, initial encounter (principal); M62.830 Muscle spasm of back; E11.9 Type 2 diabetes mellitus without complications; Z79.4 Long term (current) use of insulin
CPT/HCPCS: 96372; 99283

== ENCOUNTER 2019-02-21 15:10 | Emergency (ER) | payer SELFPAY ==
--- OUTSIDE RECORDS SUMMARY | 2019-02-21 15:12 | XMS REPORT ---
:1995 [facility] Address [address] [place] [address] Dr. Lai [address] [place] [id number] Care Team Providers Name Role Phone Unavailable Unavailable Unavailable Problems This patient has no known problems. Allergies, Adverse Reactions, Alerts This patient has no known allergies or adverse reactions. Medications This patient has no known medications.
[2019-02-21] MEDS ORDERED: NA CHLORIDE 0.9% 1,000 ML ONE ×2 (15:52→16:21)
[2019-02-21 16:15] LABS: Urine Blood NEGATIVE (NEG); Urine Glucose 2+ (NEG); Urine Protein 1+ (NEG); Urine Specific Gravity 1.015 (1.005-1.030); Urine pH 5.5 (5.0-7.0)
[2019-02-21 16:19] LABS: Absolute Lymphocytes (CBC) 2.8 K/uL (0.7-4.9); Basophils % 0.6 % (0-1.3); Hematocrit 46.2 % (39.6-49.0); Lymphocytes % 30.6 % (15.3-44.8); MPV 6.9 fL (7.6-11.3); RBC Red Blood Cell Count 5.06 M/uL (4.33-5.43)
[2019-02-21 16:32] LABS: ALT/SGPT 40 U/L (12-78); AST/SGOT 16 U/L (15-37); Albumin 4.1 g/dL (3.4-5.0); Alkaline Phosphatase 75 U/L (45-117); BUN Blood Urea Nitrogen 13 mg/dL (7-18); Bicarbonate 18 mmol/L (21-32); Bilirubin Direct 0.2 mg/dL (0-0.2); Bilirubin Total 0.6 mg/dL (0.2-1.0); Lipase 47 U/L (73-393); Protein, Total 7.1 g/dL (6.4-8.2); Sodium Level 135 mmol/L (136-145)
[2019-02-21 16:35] LABS: Glucose Level 417 mg/dL (74-106)
[2019-02-21] MEDS ORDERED: INSULIN -REGULAR HUMAN 50 UNIT/0.5 ML ML ONE (17:33)
[2019-02-21 19:10] LABS: BUN Blood Urea Nitrogen 11 mg/dL (7-18); Bicarbonate 19 mmol/L (21-32); Glucose Level 244 mg/dL (74-106); Potassium 3.7 mmol/L (3.5-5.1); Sodium Level 139 mmol/L (136-145)
--- NOTE | 2019-02-21 20:03 | EDPHYS ---
Physician Documentation [facility] Name: Wei Hyde Age: 24 yrs Sex: Male : 1995 Arrival Date: 02/21/2019 Time: 15:12 Bed 20 Private MD: ED Physician Jesus Santos HPI: 02/21 15:50 This 24 yrs old Male presents to ER via Ambulatory with complaints of Fatigue.la1 15:50 The patient or guardian reports fatigue, malaise. Onset: The symptoms/episode la1 began/occurred 3 day(s) ago. Associated signs and symptoms: Pertinent positives: anorexia, diarrhea, Pertinent negatives: constipation, diaphoresis, hair loss, nausea, skin flushing, vomiting. Current symptoms: In the emergency department the patient's symptoms are unchanged from the initial presentation. The patient has experienced similar episodes in the past. Pt reports three days of malaise and fatigue, has not been checking BGL and is IDDM. . Historical: - Allergies: 15:30 No Known Allergies; sg - Home Meds: 15:30 Novolin N 100 unit/mL Sub-Q susp [Active]; Novolog 100 unit/mL Sub-Q soln [Active]; sg - PMHx: 15:30 Diabetes - IDDM; sg - PSHx: 15:30 None; sg - Immunization history:: Adult Immunizations up to date. - Social history:: Smoking status: Patient/guardian denies using tobacco. - Ebola Screening: : Patient negative for fever greater than or equal to 101.5 degrees Fahrenheit, and additional compatible Ebola Virus Disease symptoms Patient denies exposure to infectious person Patient denies travel to an Ebola-affected area in the 21 days before illness onset No symptoms or risks identified at this time. ROS: 15:51 Constitutional: + for malaise/fatigue Eyes: Negative for injury, pain, redness, and la1 discharge, ENT: Negative for injury, pain, and discharge, Neck: Negative for injury, pain, and swelling, Cardiovascular: Negative for chest pain, palpitations, and edema, Respiratory: Negative for shortness of breath, cough, wheezing, and pleuritic chest pain, Abdomen/GI: Negative for abdominal pain, nausea, vomiting, diarrhea, and constipation, Back: Negative for injury and pain, : Negative for injury, bleeding, discharge, and swelling, MS/Extremity: Negative for injury and deformity, Neuro: Negative for headache, weakness, numbness, tingling, and seizure, Endocrine: Negative for neck swelling, polydipsia, polyuria, polyphagia, and marked weight changes. Exam: 15:51 Constitutional: This is a well developed, who is awake, alert, and in no acute la1 distress. Appears malnourished Head/Face: Normocephalic, atraumatic. Eyes: Pupils equal round and reactive to light, extra-ocular motions intact. ENT: Nares patent. No nasal discharge, no septal abnormalities noted. Tympanic membranes are normal and external auditory canals are clear. Oropharynx with no redness, swelling, or masses, exudates, or evidence of obstruction, uvula midline. Mucous membranes dry Neck: Trachea midline, no thyromegaly or masses palpated, and no cervical lymphadenopathy. Supple, full range of motion without nuchal rigidity, or vertebral point tenderness. No Meningismus. Chest/axilla: Normal chest wall appearance and motion. Nontender with no deformity. No lesions are appreciated. Cardiovascular: Regular rate and rhythm with a normal S1 and S2. No gallops, murmurs, or rubs. Normal PMI, no JVD. No pulse deficits. Respiratory: Lungs have equal breath sounds bilaterally, clear to auscultation No rales, rhonchi or wheezes noted. No increased work of breathing, no retractions or nasal flaring. 15:51 Back: No spinal tenderness. No costovertebral tenderness. Full range of motion. Skin: Warm, dry with normal turgor. Normal color with no rashes, no lesions, and no evidence of cellulitis. 15:51 Abdomen/GI: Inspection: abdomen appears normal, Bowel sounds: normal, Palpation: soft, in all quadrants, mild abdominal tenderness, in all quadrants, Indicators: McBurney's point is not tender, Bach's sign is negative, Rovsing's sign is negative, Obturator sign is negative, Psoas sign is negative. Vital Signs: 15:31 BP 142 / 72; Pulse 113; Resp 22; Temp 97.9; Pulse Ox 100% on R/A; sg 16:14 BP 145 / 77; Pulse 64; Resp 18; Pulse Ox 100% on R/A; Pain 7/10; em 17:39 BP 139 / 95; Pulse 88; Resp 18; Pulse Ox 99% on R/A; iw 19:20 BP 120 / 79; Pulse 90; Resp 17 S; Temp 98.3(O); Pulse Ox 98% on R/A; Pain 0/10; cc3 20:00 BP 121 / 73; Pulse 88; Resp 18 S; Pulse Ox 100% on R/A; Pain 0/10; cc3 MDM: 15:28 Patient medically screened. la1 19:59 Data reviewed: vital signs, nurses notes, lab test result(s), I have discussed the la1 patient's presentation/case with the attending Emergency Department Physician; and as a result, I will discharge patient. Data interpreted: Pulse oximetry: on room air is 99 %. Interpretation: normal. Counseling: I had a detailed discussion with the patient and/or guardian regarding: the historical points, exam findings, and any diagnostic results supporting the discharge/admit diagnosis, lab results, the need for outpatient follow up, a family practitioner. ED course: Pt anion gap has decreased from 13 to 10, BGL is 244, pt is feeling much better than when he arrived. Tolerating PO. Has his 70/30 insulin at home and will check his sugar and take it as indicated. Pt states he was just being irresponsible. Pt denies any abd pain or N/V/D, no concerning physical exam findings. 12 15:42 Order name: Basic Metabolic Panel; Complete Time: 16:39 [facility] 02/21 15:42 Order name: CBC with Diff; Complete Time: 16:25 [facility] 02/21 15:42 Order name: Hepatic Function; Complete Time: 16:39 [facility] 02/21 15:42 Order name: Lipase; Complete Time: 16:39 [facility] 02/21 15:42 Order name: Ketone, Serum; Complete Time: 16:39 [facility] 02/21 16:13 Order name: Urine Dipstick--Ancillary (enter results); Complete Time: 16:25 eb 02/21 15:42 Order name: IV Saline Lock; Complete Time: 16:13 [facility] 02/21 18:21 Order name: Glucose, Ancillary Testing; Complete Time: 18:22 EDMS 02/21 18:38 Order name: BMP; Complete Time: 19:15 [facility] 02/21 15:42 Order name: Labs collected and sent; Complete Time: 16:13 la02/21 15:42 Order name: Urine Dipstick-Ancillary (obtain specimen); Complete Time: 16:13 02/21 15:50 Order name: Blood Glucose Level; Complete Time: 16:13 02/21 18:39 Order name: Labs - recollect needed: repeat chemistry; Complete Time: 18:40 iw Administered Medications: 16:00 Drug: NS 0.9% 1000 ml Route: IV; Rate: 1000 ml; Site: left forearm; em 16:50 Follow up: IV Status: Completed infusion; IV Intake: 1000ml em 16:50 Drug: NS 0.9% 1000 ml Route: IV; Rate: 1000 ml; Site: left forearm; em 17:34 Follow up: IV Status: Completed infusion; IV Intake: 1000ml em 17:36 Drug: Insulin Regular Human 12 units {Co-Signature: em (Jose Guadalupe Burgos ORTHODONTIC LABORATORY TECHNICIAN).} Route: IVP; iw Site: left forearm; 18:17 Follow up: Response: No adverse reaction; Blood sugar is lowered em 19:30 CANCELLED (Other Intervention Used): D5-1/2 NS 1000 ml IV at 125 ml/min continuous la1 19:30 CANCELLED (Duplicate Order): Insulin Drip - (Insulin Regular Human 100 units, NS 0.9% la1 100 ml) IV at calculated rate continuous; Standard concentration 1unit/ml; Dose for DKA is 0.1 units/kg/hr Disposition: 02/22 08:54 Co-signature as Attending Physician, Jesus Santos MD I agree with the assessment and kdr plan of care. Disposition: 02/21/19 20:02 Discharged to Home. Impression: Hyperglycemia, unspecified. - Condition is Stable. - Discharge Instructions: Hyperglycemia, Blood Glucose Monitoring, Adult, Hyperglycemia, [id number]. - Medication Reconciliation Form, Thank You Letter form. - Follow up: Private Physician; When: 2 - 3 days; Reason: Recheck today's complaints, Re-evaluation by your physician. - Problem is new. - Symptoms have improved. Signatures: Dispatcher [employer] Dk Shepard RN RN sg Rittger, Kevin, MD MD kdr Munoz, Edgar, ORTHODONTIC LABORATORY TECHNICIAN ORTHODONTIC LABORATORY TECHNICIAN em Gina Murguia RN RN iw Attema, Praful, CRM TECHNICAL LEAD-C CRM TECHNICAL LEAD-Cla1 Diallo Brunoe cc3 Jose Guadalupe Burgos ORTHODONTIC LABORATORY TECHNICIAN em Corrections: (The following items were deleted from the chart) 02/21 19:30 19:19 D5-1/2 NS 1000 ml IV at 125 ml/min continuous ordered. la1 la1 19:30 19:19 Insulin Drip - (Insulin Regular Human 100 units, NS 0.9% 100 ml) IV at calculated la1 rate continuous; Standard concentration 1unit/ml; Dose for DKA is 0.1 units/kg/hr ordered. la1 20:21 20:02 02/21/2019 20:02 Discharged to Home. Impression: Hyperglycemia, unspecified. cc3 Condition is Stable. Forms are Medication Reconciliation Form, Thank You Letter, Antibiotic Education, Prescription Opioid Use. Follow up: Private Physician; When: 2 - 3 days; Reason: Recheck today's complaints, Re-evaluation by your physician. Problem is new. Symptoms have improved. la1
--- NOTE | 2019-02-21 20:03 | ER ---
Nurse's Notes [facility] Name: Wei Hyde Age: 24 yrs Sex: Male : 1995 Arrival Date: 02/21/2019 Time: 15:12 Bed 20 Private MD: Diagnosis: Hyperglycemia, unspecified Presentation: 02/21 15:28 Presenting complaint: Patient states: Nicky just not been feeling well for several days, sg I have diabetes but have not been watching my blood sugars, reports having fatigue and bodyaches as well. Transition of care: patient was not received from another setting of care. Onset of symptoms was February 21, 2019. Risk Assessment: Do you want to hurt yourself or someone else? Patient reports no desire to harm self or others. Initial Sepsis Screen: Does the patient meet any 2 criteria? HR > 90 bpm. Does the patient have a suspected source of infection? No. Patient's initial sepsis screen is negative. Care prior to arrival: None. 15:28 Method Of Arrival: Ambulatory sg 15:28 Acuity: SULEIMAN 3 sg Historical: - Allergies: 15:30 No Known Allergies; sg - Home Meds: 15:30 Novolin N 100 unit/mL Sub-Q susp [Active]; Novolog 100 unit/mL Sub-Q soln [Active]; sg - PMHx: 15:30 Diabetes - IDDM; sg - PSHx: 15:30 None; sg - Immunization history:: Adult Immunizations up to date. - Social history:: Smoking status: Patient/guardian denies using tobacco. - Ebola Screening: : Patient negative for fever greater than or equal to 101.5 degrees Fahrenheit, and additional compatible Ebola Virus Disease symptoms Patient denies exposure to infectious person Patient denies travel to an Ebola-affected area in the 21 days before illness onset No symptoms or risks identified at this time. Screenin:55 Abuse screen: Denies threats or abuse. Nutritional screening: No deficits noted. em Tuberculosis screening: No symptoms or risk factors identified. Fall Risk None identified. Assessment: 16:00 General: Appears in no apparent distress. comfortable, Behavior is calm, cooperative, em Denies fever. Pain: Complains of pain in pelvis Pain currently is 7 out of 10 on a pain scale. Neuro: Level of Consciousness is awake, alert, obeys commands, Oriented to person, place, time, situation, Appropriate for age Reports generalized fatigue . Cardiovascular: Capillary refill < 3 seconds Patient's skin is warm and dry. Respiratory: Airway is patent Respiratory effort is even, unlabored, Respiratory pattern is regular, symmetrical. GI: Reports nausea. Derm: Skin is intact, is healthy with good turgor, Skin is pink, warm \T\ dry. Musculoskeletal: Capillary refill < 3 seconds, Range of motion: intact in all extremities. 17:39 Reassessment: Patient appears in no apparent distress at this time. Patient and/or em family updated on plan of care and expected duration. Pain level reassessed. Patient is alert, oriented x 3, equal unlabored respirations, skin warm/dry/pink. Patient states feeling better. 19:15 Reassessment: Patient appears in no apparent distress at this time. Patient and/or cc3 family updated on plan of care and expected duration. Pain level reassessed. Patient is alert, oriented x 3, equal unlabored respirations, skin warm/dry/pink. Received this male patient from morning shift [facility] as a case of hyperglycemia with IV cannula gauge 20 at the left forearm saline locked. Patient denies pain at this time. Patient states feeling better. Patient states symptoms have improved. General: Appears in no apparent distress. comfortable, Behavior is calm, cooperative, appropriate for age. Pain: Denies pain. Neuro: Level of Consciousness is awake, alert, obeys commands, Oriented to person, place, time, situation, Appropriate for age. Cardiovascular: Denies chest pain, Heart tones S1 S2 present Capillary refill < 3 seconds in bilateral fingers Patient's skin is warm and dry. Respiratory: Airway is patent Respiratory effort is even, unlabored, Respiratory pattern is regular, symmetrical, Breath sounds are clear bilaterally. GI: Abdomen is flat, Bowel sounds present X 4 quads. Abd is soft and non tender X 4 quads. : No signs and/or symptoms were reported regarding the genitourinary system. EENT: No signs and/or symptoms were reported regarding the EENT system. Derm: Skin is intact, is healthy with good turgor, Skin is pink, warm \T\ dry. normal. Musculoskeletal: Circulation, motion, and sensation intact. Range of motion: intact in all extremities. 20:10 Reassessment: Patient appears in no apparent distress at this time. Patient and/or cc3 family updated on plan of care and expected duration. Pain level reassessed. Patient is alert, oriented x 3, equal unlabored respirations, skin warm/dry/pink. OFFICE SUPERVISOR Marco A discharged the patient home, no prescription given. IV cannula removed and patient left ER vitally stable and ambulatory. No valuables left in the patient's room. Patient denies pain at this time. Patient states feeling better. Patient states symptoms have improved. Vital Signs: 15:31 BP 142 / 72; Pulse 113; Resp 22; Temp 97.9; Pulse Ox 100% on R/A; sg 16:14 BP 145 / 77; Pulse 64; Resp 18; Pulse Ox 100% on R/A; Pain 7/10; em 17:39 BP 139 / 95; Pulse 88; Resp 18; Pulse Ox 99% on R/A; iw 19:20 BP 120 / 79; Pulse 90; Resp 17 S; Temp 98.3(O); Pulse Ox 98% on R/A; Pain 0/10; cc3 20:00 BP 121 / 73; Pulse 88; Resp 18 S; Pulse Ox 100% on R/A; Pain 0/10; cc3 ED Course: 15:12 Patient arrived in ED. mr 15:28 Pra[facility] Strickland [facility]C [facility] la1 15:28 Jesus Santos MD is Attending Physician. la1 15:29 Triage completed. sg 15:29 Arm band placed on. sg 15:30 Jose Guadalupe Burgos LVN is Primary Nurse. em 15:55 Patient has correct armband on for positive identification. Placed in gown. Bed in low em position. Call light in reach. Pulse ox on. NIBP on. 16:00 Initial lab(s) drawn, by me, sent to lab. Inserted saline lock: 20 gauge in left em forearm, using aseptic technique. Blood collected. 20:10 No provider procedures requiring assistance completed. IV discontinued, intact, cc3 bleeding controlled, No redness/swelling at site. Pressure dressing applied. Administered Medications: 16:00 Drug: NS 0.9% 1000 ml Route: IV; Rate: 1000 ml; Site: left forearm; em 16:50 Follow up: IV Status: Completed infusion; IV Intake: 1000ml em 16:50 Drug: NS 0.9% 1000 ml Route: IV; Rate: 1000 ml; Site: left forearm; em 17:34 Follow up: IV Status: Completed infusion; IV Intake: 1000ml em 17:36 Drug: Insulin Regular Human 12 units {Co-Signature: em (Jose Guadalupe Burgos PHARMACEUTICAL PHYSICIAN).} Route: IVP; iw Site: left forearm; 18:17 Follow up: Response: No adverse reaction; Blood sugar is lowered em 19:30 CANCELLED (Other Intervention Used): D5-1/2 NS 1000 ml IV at 125 ml/min continuous la1 19:30 CANCELLED (Duplicate Order): Insulin Drip - (Insulin Regular Human 100 units, NS 0.9% la1 100 ml) IV at calculated rate continuous; Standard concentration 1unit/ml; Dose for DKA is 0.1 units/kg/hr Intake: 16:50 IV: 1000ml; Total: 1000ml. em 17:34 IV: 1000ml; Total: 2000ml. em Outcome: 20:02 Discharge ordered by MD. la1 20:10 Discharged to home ambulatory. cc3 20:10 Condition: stable 20:10 Discharge instructions given to patient, Instructed on discharge instructions, follow up and referral plans. Demonstrated understanding of instructions, follow-up care. 20:21 Patient left the ED. cc3 Signatures: Dk English RN RN sg Rivera, Mary mr Burgos, Jose Guadalupe, CORNELIA PHARMACEUTICAL PHYSICIAN em Gina Murguia RN RN iw Attema, Lee, PRIMARY THERAPIST-C PRIMARY THERAPIST-Cla1 Katie Bruno cc3 Jose Guadalupe Burgos PHARMACEUTICAL PHYSICIAN em Corrections: (The following items were deleted from the chart) 17:47 17:39 Reassessment: Patient appears in no apparent distress at this time. Patient em and/or family updated on plan of care and expected duration. Pain level reassessed. Patient is alert, oriented x 3, equal unlabored respirations, skin warm/dry/pink. Patient states feeling better. iw
[2019-02-21 23:08] VITALS: TEMP 97.9
[2019-02-21 23:14] VITALS: BP 139/95; O2SAT 99
== END 2019-02-21 20:21 | disposition home or self-care (01) ==
LOC: ER 15:10
DX: E11.65 Type 2 diabetes mellitus with hyperglycemia (principal); Z79.4 Long term (current) use of insulin
CPT/HCPCS: 36415; 80048; 80076; 81003; 82010; 82947; 83690; 85025; 96361; 96374; 99284; J7030

== ENCOUNTER 2019-10-10 23:10 | Inpatient (IN) | payer SELFPAY ==
[2019-10-10] MEDS ORDERED: NA CHLORIDE 0.9% 2,000 ML ONE (23:51)
[2019-10-10 23:56] LABS: Absolute Lymphocytes (CBC) 2.6 K/uL (0.7-4.9); Basophils % 0.8 % (0-1.3); Hematocrit 51.3 % (39.6-49.0); Lymphocytes % 9.3 % (15.3-44.8); RBC Red Blood Cell Count 5.22 M/uL (4.33-5.43)
[2019-10-10 23:58] LABS: Protime INR 0.97
[2019-10-11 00:07] LABS: Arterial Blood Carboxyhemoglob 1.4 % (0-1.5); Blood Gas Oxyhemoglobin 95.3 % (94-97); Blood O2 Saturation 97.8 % (92-98.5)
[2019-10-11] MEDS ORDERED: NA CHLORIDE 0.9% 100 ML ONE (00:30)
[2019-10-11] MEDS ORDERED: INSULIN -REGULAR HUMAN 50 UNIT/0.5 ML ML ONE (00:37)
--- NOTE | 2019-10-11 01:06 | ER ---
Nurse's Notes [facility] Name: Wei Hyde Age: 24 yrs Sex: Male : 1995 Arrival Date: 10/10/2019 Time: 23:13 Bed 11 Private MD: Diagnosis: Type 1 diabetes mellitus with ketoacidosis without coma Presentation: 10/09 23:23 Chief complaint: Patient states: "the pt is reporting that he has been out of insulin jd3 for 2 months now. he felt like it was low today and was eating a peanut butter sandwich. he is lethargic and reporting weakness, denies pain. our Glucometer read high which means it is over 600.". Coronavirus screen: Proceed with normal triage. Ebola Screen: Patient negative for fever greater than or equal to 101.5 degrees Fahrenheit, and additional compatible Ebola Virus Disease symptoms. Initial Sepsis Screen: Does the patient meet any 2 criteria? No. Patient's initial sepsis screen is negative. Does the patient have a suspected source of infection? No. Patient's initial sepsis screen is negative. Risk Assessment: Do you want to hurt yourself or someone else? Patient reports no desire to harm self or others. Onset of symptoms was October 10, 2019. 23:23 Method Of Arrival: EMS: [facility] jd3 23:23 Acuity: SULEIMAN 2 jd3 Historical: - Allergies: 23:26 No Known Allergies; jd3 - Home Meds: 23:26 Novolin N 100 unit/mL Sub-Q susp [Active]; Novolog 100 unit/mL Sub-Q soln [Active]; jd3 - PMHx: 23:26 Diabetes - IDDM; jd3 - PSHx: 23:26 None; jd3 - Immunization history:: Adult Immunizations up to date. - Social history:: Smoking status: Patient reports the use of cigarette tobacco products, denies chronic smoking, but will smoke occasionally. Screenin:50 Abuse screen: Denies threats or abuse. Denies injuries from another. Nutritional mg2 screening: No deficits noted. Tuberculosis screening: No symptoms or risk factors identified. Fall Risk IV access (20 points). Assessment: 23:15 General: Appears in no apparent distress. comfortable, malnourished, Behavior is calm, mg2 cooperative. Pain: Denies pain. Neuro: Level of Consciousness is awake, alert, obeys commands, lethargic, Oriented to person, place, situation. Cardiovascular: Capillary refill < 3 seconds Patient's skin is warm and dry. Respiratory: Airway is patent Respiratory effort is even, unlabored, Respiratory pattern is regular, symmetrical. GI: Last BM was October 11, 2019. at 00:40. watery dark tarry stool observed. : No signs and/or symptoms were reported regarding the genitourinary system. EENT: No signs and/or symptoms were reported regarding the EENT system. Derm: Skin is intact, is healthy with good turgor. Musculoskeletal: Circulation, motion, and sensation intact. Capillary refill < 3 seconds. 23:18 Reassessment: Spoke with patient's mother, Dipika Hyde, phone number: [phone]; lp1 Informed Provider of mother's concern for patient's thyroid levels; She will call back for further updates. 10/10 00:46 Reassessment: patient looks lethargic but conversant, was able to use the bedside mg2 commode with assistance. 01:15 Reassessment: critical lab result-bicarb 1 and BGL of 811 relayed to the physician. mg2 01:36 Reassessment: Patient appears in no apparent distress at this time. Dr cheryl La-hospitalist came and examined the patient. 02:41 Reassessment: Patient appears in no apparent distress at this time. patient sleeping. mg2 Vital Signs: 10/09 23:26 BP 138 / 88; Pulse 81; Resp 32 S; Temp 97.5(O); Pulse Ox 100% on R/A; Weight 58.97 kg jd3 (R); Pain 0/10; 10/10 00:48 BP 109 / 79; Pulse 84; Resp 25; Pulse Ox 100% on R/A; mg2 01:37 BP 108 / 78; Pulse 100; Resp 25; Pulse Ox 100% on R/A; mg2 ED Course: 10/09 23:13 Patient arrived in ED. lp1 23:13 Dirk Raza MD is Attending Physician. tw4 23:23 Eric Arizmendi RN is Primary Nurse. jd3 23:25 Triage completed. jd3 23:26 Arm band placed on. jd3 23:50 Patient has correct armband on for positive identification. Door closed. Warm blanket mg2 given. 23:50 No provider procedures requiring assistance completed. Inserted saline lock: 20 gauge mg2 in left antecubital area, using aseptic technique. Blood collected. 10/10 00:14 Maintain EMS IV. Dressing intact. Good blood return noted. Site clean \\T\\ dry. Gauge \\T\\ mg 2 site: 20 \\T\\ RAC. 00:24 Chest Single View XRAY In Process Unspecified. EDMS 00:31 Notified ED physician of a critical lab result(s). WBC of 28.4. jd3 00:46 Yves Sherman, RN is Primary Nurse. mg2 01:04 Kannan La is Hospitalizing Provider. tw4 03:00 Inserted saline lock: 20 gauge in left forearm, using aseptic technique. mg2 03:00 Patient admitted, IV remains in place. mg2 Administered Medications: 10/09 23:50 Drug: NS 0.9% (30 ml/kg) 30 ml/kg Route: IV; Rate: bolus; Site: left antecubital; mg2 10/10 02:40 Follow up: Response: No adverse reaction; IV Status: Completed infusion; IV Intake: mg2 1800ml 00:10 Drug: Insulin Regular Human 10 units {Co-Signature: mg2 (Yves Sherman RN).} Route: jd3 IVP; Site: left antecubital; 02:39 Follow up: Response: No adverse reaction; Blood sugar is unchanged mg2 00:43 Drug: Insulin Drip - (Insulin Regular Human 100 units, NS 0.9% 100 ml) {Co-Signature: mg2 jd3 (Eric Arizmnedi RN).} Route: IV; Rate: calculated rate; Site: left antecubital; 01:35 Drug: ProTONIX 40 mg Route: IVP; Site: left antecubital; mg2 02:39 Follow up: Response: No adverse reaction mg2 01:35 Drug: Sodium Bicarbonate 100 mEq Route: IVP; Site: left antecubital; mg2 02:39 Follow up: Response: No adverse reaction mg2 Intake: 02:40 IV: 1800ml; Total: 1800ml. mg2 Outcome: 01:05 Decision to Hospitalize by Provider. tw4 03:15 Admitted to ER Hold. Please see [facility] for further documentation. mg2 08:10 Patient left the ED. ss Signatures: Dispatcher [facility] Yasmine Chi RN RN Yary Reyna RN RN lp1 Eric Arizmendi RN RN jd3 Dirk Raza MD MD tw4 Yves Sherman RN RN mg2 Yves Sherman RN mg2 Eric Arizmendi RN jd3 Corrections: (The following items were deleted from the chart) 10/09 23:38 23:26 BP 138 / 88; Pulse 81bpm; Resp 32bpm; Spontaneous; Pulse Ox 100% RA; Temp 97.5F jd3 Oral; Pain 0/10; jd3 10/10 01:15 00:48 Pulse 84bpm; Resp 18bpm; Pulse Ox 100% RA; mg2 mg2 01:37 00:48 BP 109 / 79; Pulse 84bpm; Resp 18bpm; Pulse Ox 100% RA; mg2 mg2
--- NOTE | 2019-10-11 01:06 | EDPHYS ---
Physician Documentation [facility] Name: Wei Hyde Age: 24 yrs Sex: Male : 1995 Arrival Date: 10/10/2019 Time: 23:13 Bed 11 Private MD: ED Physician Dirk Raza HPI: 10/10 02:26 This 24 yrs old Male presents to ER via EMS with complaints of generalized tw4 weakness. 02:26 The patient presents with generalized weakness. Onset: The symptoms/episode tw4 began/occurred today. Context: occurred at home. Modifying factors: The symptoms are alleviated by nothing, the symptoms are aggravated by nothing. Associated signs and symptoms: The patient has no apparent associated signs or symptoms. Severity of symptoms: At their worst the symptoms were moderate in the emergency department the symptoms are unchanged. The patient has not experienced similar symptoms in the past. Historical: - Allergies: 10/09 23:26 No Known Allergies; jd3 - Home Meds: 23:26 Novolin N 100 unit/mL Sub-Q susp [Active]; Novolog 100 unit/mL Sub-Q soln [Active]; jd3 - PMHx: 23:26 Diabetes - IDDM; jd3 - PSHx: 23:26 None; jd3 - Immunization history:: Adult Immunizations up to date. - Social history:: Smoking status: Patient reports the use of cigarette tobacco products, denies chronic smoking, but will smoke occasionally. ROS: 10/10 02:26 Constitutional: Negative for fever, chills, and weight loss, Eyes: Negative for injury, tw4 pain, redness, and discharge, Cardiovascular: Negative for chest pain, palpitations, and edema, Respiratory: Negative for shortness of breath, cough, wheezing, and pleuritic chest pain, Abdomen/GI: Negative for abdominal pain, nausea, vomiting, diarrhea, and constipation, Back: Negative for injury and pain, MS/Extremity: Negative for injury and deformity, Skin: Negative for injury, rash, and discoloration. Neuro: Positive for weakness. Exam: : Head/Face: Normocephalic, atraumatic. Chest/axilla: Normal chest wall appearance and tw4 motion. Nontender with no deformity. No lesions are appreciated. Cardiovascular: Regular rate and rhythm with a normal S1 and S2. No gallops, murmurs, or rubs. Normal PMI, no JVD. No pulse deficits. Respiratory: Lungs have equal breath sounds bilaterally, clear to auscultation and percussion. No rales, rhonchi or wheezes noted. No increased work of breathing, no retractions or nasal flaring. Abdomen/GI: Soft, non-tender, with normal bowel sounds. No distension or tympany. No guarding or rebound. No evidence of tenderness throughout. 02:26 Skin: Warm, dry with normal turgor. Normal color with no rashes, no lesions, and no evidence of cellulitis. MS/ Extremity: Pulses equal, no cyanosis. Neurovascular intact. Full, normal range of motion. Neuro: Awake and alert, GCS 15, oriented to person, place, time, and situation. Cranial nerves II-XII grossly intact. Motor strength 5/5 in all extremities. Sensory grossly intact. Cerebellar exam normal. Normal gait. 02:26 Constitutional: The patient appears in obvious distress, moderately distressed, obviously ill. Vital Signs: 10/09 23:26 BP 138 / 88; Pulse 81; Resp 32 S; Temp 97.5(O); Pulse Ox 100% on R/A; Weight 58.97 kg jd3 (R); Pain 0/10; 10/10 00:48 BP 109 / 79; Pulse 84; Resp 25; Pulse Ox 100% on R/A; mg2 01:37 BP 108 / 78; Pulse 100; Resp 25; Pulse Ox 100% on R/A; mg2 MDM: 10/09 23:18 Patient medically screened. tw4 10/10 02:29 Differential diagnosis: cardiac arrhythmia, generalized weakness, GI bleed, head tw4 injury, hyperventilation, hypovolemia, idiopathic dizziness, near-syncope, TIA, vertigo. Data reviewed: vital signs, nurses notes. Data interpreted: Pulse oximetry: Interpretation: normal. Test interpretation: by ED physician or midlevel provider: ECG. Counseling: I had a detailed discussion with the patient and/or guardian regarding: the historical points, exam findings, and any diagnostic results supporting the discharge/admit diagnosis. 04:13 Physician consultation: Kannan La regarding admission, to the ICU, patient's tw4 condition, and will see patient in ED. 05:44 ED course: Pt critically ill secondary to DKA and profound metabolic acidosis. tw4 Intervention included IVF hydration and continuous insulin therapy. Also administration of sodium bicarbonate for metabolic acidosis. 10/09 23:16 Order name: Amylase, Serum 10/09 23:16 Order name: Basic Metabolic Panel [facility] 10/09 23:16 Order name: Blood Culture Adult (2) [facility] 10/09 23:16 Order name: CBC with Diff 10/09 23:16 Order name: Ckmb 10/09 23:16 Order name: CPK 10/09 23:16 Order name: Lactate; Complete Time: 01:04 10/09 23:16 Order name: LFT's 10/09 23:16 Order name: Lipase 10/09 23:16 Order name: Procalcitonin [facility] 10/09 23:16 Order name: Protime (+inr); Complete Time: 01:04 [facility] 10/09 23:16 Order name: Ptt, Activated; Complete Time: 01:04 [facility] 10/09 23:16 Order name: Troponin (emerg Dept Use Only) 10/09 23:16 Order name: Urine Microscopic Only 10/09 23:45 Order name: T3 Free [facility] 10/09 23:45 Order name: T4,Total [facility] 10/09 23:45 Order name: T4 Free [facility] 10/09 23:45 Order name: Thyroid Stimulating Hormone [facility] 10/09 23:47 Order name: Glucose, Ancillary Testing; Complete Time: 01:04 [facility] 10/09 23:51 Order name: ABG; Complete Time: 01:04 [facility] 10/10 00:32 Order name: Manual Differential [facility] 10/10 01:50 Order name: Glucose mg2 10/10 02:01 Order name: Glucose, Ancillary Testing [facility] 10/10 03:03 Order name: Basic Metabolic Panel [facility] 10/10 03:39 Order name: Glucose, Ancillary Testing [facility] 10/10 04:43 Order name: Glucose, Ancillary Testing [facility] 10/09 23:16 Order name: Chest Single View XRAY [facility] 10/09 23:16 Order name: Accucheck; Complete Time: 23:38 10/09 23:16 Order name: Cardiac monitoring; Complete Time: 23:38 10/09 23:16 Order name: EKG - Nurse/Tech; Complete Time: 00:12 4 10/09 23:16 Order name: IV Saline Lock - Large Bore; Complete Time: 23:38 tw4 10/09 23:16 Order name: Labs collected and sent; Complete Time: 23:38 tw4 10/09 23:16 Order name: O2 Per Protocol; Complete Time: 23:38 tw4 10/09 23:16 Order name: O2 Sat Monitoring; Complete Time: 23:39 tw4 10/09 23:16 Order name: Urine Dipstick-Ancillary (obtain specimen); Complete Time: 00:14 tw4 10/10 05:41 Order name: Glucose, Ancillary Testing EDMS 10/10 06:04 Order name: ABG Arterial Blood Gas EDMS 10/10 06:35 Order name: Urine Dipstick--Ancillary (enter results) ar5 10/10 06:43 Order name: Urine Dipstick-Ancillary EDMS 10/10 06:47 Order name: Glucose, Ancillary Testing [facility]IA 10/10 06:49 Order name: Basic Metabolic Panel [facility] 10/10 07:55 Order name: Glucose, Ancillary Testing EDMS EC:30 Rate is 84 beats/min. Rhythm is regular. QRS Shields is Normal. CO interval is normal. QRS tw4 interval is normal. QT interval is normal. No Q waves. T waves are Inverted in lead V3. T waves are Flattened in leads II, III, aVL, aVF. No ST changes noted. Clinical impression: NSR w/ Non-specific ST/T Changes. Interpreted by me. Reviewed by me. Administered Medications: 10/09 23:50 Drug: NS 0.9% (30 ml/kg) 30 ml/kg Route: IV; Rate: bolus; Site: left antecubital; mg2 10/10 02:40 Follow up: Response: No adverse reaction; IV Status: Completed infusion; IV Intake: mg2 1800ml 00:10 Drug: Insulin Regular Human 10 units {Co-Signature: mg2 (Yves Sherman RN).} Route: jd3 IVP; Site: left antecubital; 02:39 Follow up: Response: No adverse reaction; Blood sugar is unchanged mg2 00:43 Drug: Insulin Drip - (Insulin Regular Human 100 units, NS 0.9% 100 ml) {Co-Signature: mg2 jd3 (Eric Arizmendi RN).} Route: IV; Rate: calculated rate; Site: left antecubital; 01:35 Drug: ProTONIX 40 mg Route: IVP; Site: left antecubital; mg2 02:39 Follow up: Response: No adverse reaction mg2 01:35 Drug: Sodium Bicarbonate 100 mEq Route: IVP; Site: left antecubital; mg2 02:39 Follow up: Response: No adverse reaction mg2 Disposition: 10/11/19 01:05 Hospitalization ordered by Kannan La for Inpatient Admission. Preliminary diagnosis is Type 1 diabetes mellitus with ketoacidosis without coma. - Bed requested for [facility] ER HOLD. - Status is Inpatient Admission. ss - Condition is Guarded. - Problem is an ongoing problem. - Symptoms are unchanged. Critical care time excluding procedures: : Critical care time: Bedside Care: 30 minutes, Consultation: 5 minutes. Total time: 35 tw4 minutes Signatures: Dispatcher [employer] EDMS Yasmine Chi RN RN Martha Moore RN RN Eric Arizmendi RN RN jd3 Dirk Raza MD MD tw4 Yves Sherman RN RN mg2 Yves Sherman RN mg2 Eric Arizmendi RN jd3 Corrections: (The following items were deleted from the chart) 10/09 23:42 23:20 THYROID STIMULAT HORMONE+C.LAB.BRZ ordered. EDIA EDMS 23:44 23:22 T3 FREE+C.LAB.BRZ ordered. EDIA EDMS 23:44 23:22 T4 FREE+C.LAB.BRZ ordered. EDIA EDMS 23:44 23:22 T4,TOTAL+C.LAB.BRZ ordered. EDIA EDMS 10/10 03:15 01:05 Hospitalization Ordered by Kannan La for Inpatient Admission. Preliminary cg diagnosis is Type 1 diabetes mellitus with ketoacidosis without coma. Bed requested for Intensive Care Unit. Status is Inpatient Admission. Condition is Guarded. Problem is an ongoing problem. Symptoms are unchanged. tw4 08:10 03:15 10/11/2019 01:05 Hospitalization Ordered by Kannan La for Inpatient ss Admission. Preliminary diagnosis is Type 1 diabetes mellitus with ketoacidosis without coma. Bed requested for [facility] ER HOLD. Status is Inpatient Admission. Condition is Guarded. Problem is an ongoing problem. Symptoms are unchanged. cg
[2019-10-11 01:13] LABS: ALT/SGPT 60 U/L (12-78); AST/SGOT 80 U/L (15-37); Alkaline Phosphatase 153 U/L (45-117); Amylase 21 U/L (25-115); BUN Blood Urea Nitrogen 25 mg/dL (7-18); Bilirubin Direct 0.1 mg/dL (0-0.2); Bilirubin Total 0.5 mg/dL (0.2-1.0); CKMB Creatine Kinase MB 2.7 ng/mL (0.3-3.6); Lipase 87 U/L (73-393); Potassium 4.9 mmol/L (3.5-5.1); Protein, Total 7.8 g/dL (6.4-8.2); Sodium Level 124 mmol/L (136-145); Troponin (Emerg Dept Use Only) < 0.02 ng/mL (0.0-0.045)
[2019-10-11 01:15] LABS: Bicarbonate 1 mmol/L (21-32); Glucose Level 811 mg/dL (74-106)
[2019-10-11] MEDS ORDERED: SODIUM BICARB 50 MEQ/50ML VIAL ONE (01:28)
[2019-10-11 01:35] LABS: Blood Morphology Comment NOT SEEN (NOT SEEN); Platelet Estimate ADEQ
[2019-10-11] MEDS ORDERED: PANTOPRAZOLE 40 MG INJ ONE ×3 (01:38→20:21)
[2019-10-11] MEDS ORDERED: ONDANSETRON 4 MG/2 ML VIAL IV PRN (02:03)
[2019-10-11] MEDS ORDERED: INSULIN -REGULAR HUMAN 100 UNIT in NA CHLORIDE 0.9% 100 ML IV SCH (02:03)
[2019-10-11] MEDS ORDERED: SODIUM CHLORIDE 0.9% 10ML INJ IV PRN (02:03)
[2019-10-11] MEDS: NA CHLORIDE 0.9% 1,000 ML IV SCH ×7 (02:03→18:03)
[2019-10-11] MEDS: D5 0.45 NS 1,000 ML IV SCH ×3 (02:03→15:23)
--- NOTE | 2019-10-11 02:10 | P.HP ---
Certification for Inpatient Patient admitted to: Inpatient With expected LOS: >2 Midnights Practitioner: I am a practitioner with admitting privileges, knowledge of patient current condition, hospital course, and medical plan of care. Services: Services provided to patient in accordance with Admission requirements found in Title 42 Section 412.3 of the Code of Federal Regulations Patient History Date of Service: 10/11/19 Reason for admission: Generalized weakness History of Present Illness: 24-year-old gentleman with a history of insulin-dependent diabetes presented emergency department with a complaint generalized weakness. He reports running out of insulin for about 2 months because he has not been able to afford it due to lack of insurance. Patient blood sugar is elevated to 800. He has severe acidemia with a pH of 6.9, bicarb level of 1, and sodium level of 124. The patient was lethargic during my assessment in the ED. When he was given normal saline bolus and started on insulin drip. Patient is admitted for further management of DKA. Allergies No Known Allergies Allergy (Unverified 01/12/19 20:25) Home Medications: Insulin -Regular Human [Novolin -R*] 5 unit SQ TIDWM #1 vial 01/13/19 Insulin Glargine Human [Lantus] 30 unit SQ DAILY #1 vial 01/13/19 - Past Medical/Surgical History Diabetic: Yes -: DM Type 1 -: Tobacco abuse -: Marijuana use Psychosocial/ Personal History: Patient is single. He has no children. He does not work. - Family History Mother -: Diabetes Brother -: Hypertension, Diabetes - Social History Alcohol use: No CD- Drugs: Yes Caffeine use: Yes Review of Systems Other: Nurse report patient had a dark-colored diarrhea. Patient denies any fever or chills or cough or chest pain. Except as documented, all other systems reviewed and negative. Physical Examination - Physical Exam General: In no apparent distress, Oriented x3, Other (Lethargic) HEENT: Mucous membr. moist/pink, Sclerae nonicteric Neck: Supple, JVD not distended Respiratory: Clear to auscultation bilaterally, Normal air movement Cardiovascular: No edema, Regular rate/rhythm Capillary refill: <2 Seconds Gastrointestinal: Normal bowel sounds, Soft and benign, Non-distended, No tenderness Musculoskeletal: No swelling, No erythema Integumentary: No rashes Neurological: Normal strength at 5/5 x4 extr, Cranial nerves 3-12 intact - Studies Laboratory Data (last 24 hrs) 10/10/19 23:30: PT 11.5, INR 0.97, APTT 42.2 H 10/10/19 23:30: WBC 28.4 H*, Hgb 16.1, Hct 51.3 H, Plt Count 378 10/10/19 23:30: Sodium 124 L, Potassium 4.9, BUN 25 H, Creatinine 1.32 H, Glucose 811 H*, Total Bilirubin 0.5, AST 80 H, ALT 60, Alkaline Phosphatase 153 H, Amylase 21 L, Lipase 87 Assessment and Plan - Problems (Diagnosis) (1) DKA (diabetic ketoacidoses) Current Visit: Yes Status: Acute (2) Sepsis Current Visit: Yes Status: Acute (3) GI bleed Current Visit: Yes Status: Acute (4) Acute renal failure Current Visit: Yes Status: Acute - Plan Admit to the ICU. DKA protocol initiated with IV hydration, insulin drip. Monitor electrolytes and renal function. BMP q.4 hr per DKA protocol Correct electrolytes as needed. Start IV Rocephin for sepsis. Follow blood culture Monitor CBC. Patient given 2 amps of bicarb. - Advance Directives Does patient have a Living Will: No Does patient have a Durable POA for Healthcare: No
[2019-10-11 02:46] LABS: Creatine Phosphokinase 128 U/L (39-308); T3 Free 1.38 pg/mL (2.18-3.98); T4,Total 8.2 ug/dL (4.5-12.1)
[2019-10-11] MEDS: CEFTRIAXONE/SWI 1gm 1 GM/10 ML SYR IV SCH (02:59)
[2019-10-11 03:02] LABS: Potassium 4.5 mmol/L (3.5-5.1)
[2019-10-11] MEDS ORDERED: NA CHLORIDE 0.9% 2,000 ML ONE (03:12)
[2019-10-11] MEDS ORDERED: CEFTRIAXONE/SWI 1gm 1 GM/10 ML SYR ONE (03:12)
[2019-10-11 04:02] VITALS: BMI 18.6
[2019-10-11] MEDS: PANTOPRAZOLE 40 MG INJ IVP SCH ×3 (04:57→20:13)
[2019-10-11 06:03] LABS: Arterial Blood Carboxyhemoglob 1.9 % (0-1.5); Blood Gas Oxyhemoglobin 95.9 % (94-97); Blood O2 Saturation 98.8 % (92-98.5)
[2019-10-11 06:43] LABS: Urine Blood 2+ (NEG); Urine Glucose 2+ (NEG); Urine Protein 1+ (NEG); Urine Specific Gravity 1.015 (1.005-1.030)
[2019-10-11 06:48] LABS: Potassium 3.5 mmol/L (3.5-5.1)
--- NOTE | 2019-10-11 08:10 | P.PN ---
Date of Service: 10/11/19 Patient seen and examined. Blood glucose has improved with the insulin drip. Bicarb level is very low but improving gradually. Vitals are stable. Patient is awake. He has been afebrile. Plan: Continue IV hydration. Continue insulin drip Ice chips and water Continue empiric antibiotics Follow blood culture. Monitor CBC. Check stool for occult blood.
--- NOTE | 2019-10-11 08:15 | RAD REPORT ---
EXAM DESCRIPTION: RAD - Chest Single View - 10/11/2019 12:10 am CLINICAL HISTORY: DKA, diabetic ketoacidosis COMPARISON: January 12, 2019 TECHNIQUE: AP portable chest image was obtained 10/11/2019 12:10 am . FINDINGS: Exam has slight motion degradation. Skin fold artifact is seen lower left lung field. No f ocal consolidation or mass. Interstitial pattern is not substantially different from comparison when adjusting for lower lung volumes and slight motion. No pulmonary edema, failure or volume overload fi ndings. Trachea is midline. Heart and vasculature are normal. No measurable pleural effusion and no p neumothorax. No acute bony abnormality seen. No acute aortic findings suspected. IMPRESSION: As detailed above, no acute cardiopulmonary finding seen.
[2019-10-11] MEDS ORDERED: D5 0.45 NS 1,000 ML IV ONE (09:37)
[2019-10-11 10:06] LABS: Basophils % 0.6 % (0-1.3); Hematocrit 38.9 % (39.6-49.0); Lymphocytes % 11.4 % (15.3-44.8); MPV 6.4 fL (7.6-11.3)
[2019-10-11 10:20] LABS: BUN Blood Urea Nitrogen 22 mg/dL (7-18); Glucose Level 161 mg/dL (74-106); Potassium 3.3 mmol/L (3.5-5.1); Sodium Level 143 mmol/L (136-145)
[2019-10-11 10:22] LABS: Bicarbonate 12 mmol/L (21-32)
[2019-10-11] MEDS: KCL 20 MEQ/100 mL IVPB 20 MEQ/100 ML BAG IV SCH ×2 (11:19→14:14)
[2019-10-11] MEDS ORDERED: KCL 20 MEQ/100 mL IVPB 20 MEQ/100 ML BAG IV ONE ×2 (11:25→14:19)
[2019-10-11] MEDS ORDERED: ONDANSETRON 4 MG/2 ML VIAL ONE (12:16)
[2019-10-11 15:18] LABS: Potassium 3.2 mmol/L (3.5-5.1)
[2019-10-11] MEDS: INSULIN GLARGINE 100 UNITS/ML SQ SCH (15:40)
[2019-10-11] MEDS: INSULIN -REGULAR HUMAN 50 UNIT/0.5 ML ML SQ SCH ×2 (16:30→22:02)
[2019-10-11] MEDS: NACHLORIDE 0.45% 1,000 ML IV SCH (22:03)
[2019-10-12] MEDS: NACHLORIDE 0.45% 1,000 ML IV SCH ×6 (02:00→22:00)
[2019-10-12] MEDS: CEFTRIAXONE/SWI 1gm 1 GM/10 ML SYR IV SCH (03:53)
[2019-10-12 04:47] LABS: Absolute Lymphocytes (CBC) 1.3 K/uL (0.7-4.9); Basophils % 0.5 % (0-1.3); Hematocrit 35.5 % (39.6-49.0); Lymphocytes % 12.7 % (15.3-44.8); MPV 6.9 fL (7.6-11.3); RBC Red Blood Cell Count 3.99 M/uL (4.33-5.43)
[2019-10-12 04:59] LABS: Magnesium 1.7 mg/dL (1.8-2.4); Phosphorus 2.4 mg/dL (2.5-4.9); Potassium 3.2 mmol/L (3.5-5.1)
[2019-10-12] MEDS ORDERED: MAGNESIUM SULFATE 1 gm IVPB 1 GM/100 ML BAG IV ONE (05:08)
[2019-10-12] MEDS ORDERED: POTASSIUM 25 MEQ EFFERV TAB PO ONE (05:24)
[2019-10-12] MEDS ORDERED: GLUCAGON 1 MG/VIAL IM PRN ×2 (05:44→19:59)
[2019-10-12] MEDS ORDERED: INSULIN GLARGINE 100 UNITS/ML SQ ONE (05:44)
[2019-10-12] MEDS ORDERED: D50W 25 GM/50 ML SYRINGE/VIAL IV PRN ×2 (05:44→19:59)
[2019-10-12] MEDS ORDERED: NA CHLORIDE 0.9% 500 ML IV ONE (05:47)
[2019-10-12] MEDS: POTASS/SODIUM PHOSPHATE 1 PKT POWD.PACK PO SCH ×3 (05:48→08:24)
[2019-10-12] MEDS ORDERED: METOPROLOL TARTRATE 5 MG/5 ML INJ IV STA (05:51)
--- NOTE | 2019-10-12 05:53 | P.PN ---
Date of Service: 10/12/19 Patient's anion gap has opened back up. Currently, anion gap is 16, but it was 9. However, patient was not given Lantus yesterday morning. He has not had any long-acting insulin in his system today. After his DKA was corrected he was just given a sliding scale. Unfortunately, he has gone back into mild DKA. Hopefully by giving him long-acting insulin now and repeating his labs in a couple of hr his anion gap will start closing again. Acetone level is pending.
[2019-10-12] MEDS ORDERED: NA CHLORIDE 0.9% 500 ML ONE (06:09)
[2019-10-12 08:18] LABS: BUN Blood Urea Nitrogen 15 mg/dL (7-18); Glucose Level 307 mg/dL (74-106); Potassium 3.7 mmol/L (3.5-5.1); Sodium Level 135 mmol/L (136-145)
[2019-10-12 08:19] LABS: Bicarbonate 14 mmol/L (21-32)
[2019-10-12] MEDS: INSULIN -REGULAR HUMAN 50 UNIT/0.5 ML ML SQ SCH ×4 (08:24→21:01)
[2019-10-12] MEDS: PANTOPRAZOLE 40 MG INJ IVP SCH ×2 (08:24→21:01)
[2019-10-12] MEDS: INSULIN GLARGINE 100 UNITS/ML SQ SCH (08:24)
[2019-10-12] MEDS ORDERED: KCL 20 MEQ/100 mL IVPB 20 MEQ/100 ML BAG IV SCH (14:00)
[2019-10-12] MEDS: KCL 20 MEQ/100 mL IVPB 20 MEQ/100 ML BAG IV SCH ×2 (14:02→16:16)
[2019-10-12] MEDS: GLUCERNA SHAKE 237 ML CAN PO SCH (21:01)
[2019-10-13] MEDS: INSULIN -REGULAR HUMAN 50 UNIT/0.5 ML ML SQ SCH ×3 (00:26→08:38)
[2019-10-13] MEDS ORDERED: ACETAMINOPHEN 500 MG TAB PO ONE (00:56)
[2019-10-13] MEDS: NACHLORIDE 0.45% 1,000 ML IV SCH ×2 (01:14→08:00)
[2019-10-13] MEDS ORDERED: POTASSIUM CL SA 10 MEQ TAB PO ONE ×2 (01:35→09:00)
[2019-10-13] MEDS: CEFTRIAXONE/SWI 1gm 1 GM/10 ML SYR IV SCH (01:46)
[2019-10-13 05:52] LABS: Absolute Lymphocytes (CBC) 1.1 K/uL (0.7-4.9); Basophils % 0.8 % (0-1.3); Hematocrit 31.4 % (39.6-49.0); Lymphocytes % 21.6 % (15.3-44.8); MPV 6.8 fL (7.6-11.3); RBC Red Blood Cell Count 3.58 M/uL (4.33-5.43)
[2019-10-13 06:11] LABS: BUN Blood Urea Nitrogen 10 mg/dL (7-18); Bicarbonate 26 mmol/L (21-32); Glucose Level 188 mg/dL (74-106); Sodium Level 139 mmol/L (136-145)
[2019-10-13] MEDS ORDERED: ACETAMINOPHEN 500 MG TAB PO PRN (07:00)
[2019-10-13] MEDS: INSULIN GLARGINE 100 UNITS/ML SQ SCH (08:38)
[2019-10-13] MEDS: POTASS/SODIUM PHOSPHATE 1 PKT POWD.PACK PO SCH ×3 (08:39→11:16)
[2019-10-13] MEDS: PANTOPRAZOLE 40 MG INJ IVP SCH (08:39)
[2019-10-13] MEDS: GLUCERNA SHAKE 237 ML CAN PO SCH (08:48)
[2019-10-13] MEDS ORDERED: POTASS/SODIUM PHOSPHATE 1 PKT POWD.PACK PO SCH (09:00)
[2019-10-13 09:44] VITALS: BP 121/81; TEMP 98.4
[2019-10-13 09:55] VITALS: O2SAT 99
--- NOTE | 2019-10-13 11:14 | P.DS ---
Admission Date: 10/11/19 Discharge Date: 10/14/19 Disposition: ROUTINE DISCHARGE Discharge Condition: GOOD Reason for Admission: Generalized weakness Brief History of Present Illness: 24-year-old gentleman with a history of insulin-dependent diabetes presented emergency department with a complaint generalized weakness. He reports running out of insulin for about 2 months because he has not been able to afford it due to lack of insurance. Patient blood sugar is elevated to 800. He has severe acidemia with a pH of 6.9, bicarb level of 1, and sodium level of 124. The patient was lethargic during my assessment in the ED. When he was given normal saline bolus and started on insulin drip. Patient is admitted for further management of DKA. Hospital Course: The patient was admitted and was monitored closely under telemetry. Initially was started on insulin drip and aggressive IV hydration and serial BMPs were done. Electrolytes are monitored and replaced accordingly. Cultures were negative. Patient responded well to the treatment and wanted to go home and is being discharged home today in a stable condition with advice to follow up with PCP in 1 week time. It was reiterated with him about the need for further close monitoring and control of diabetes. Patient verbalized understanding Vital Signs/Physical Exam: Temp Pulse Resp BP Pulse Ox 98.4 F 98 H 20 121/81 99 10/13/19 08:00 10/13/19 08:00 10/13/19 08:00 10/13/19 08:00 10/13/19 08:00 General: Alert, In no apparent distress HEENT: Atraumatic, Normocephalic Neck: Supple Respiratory: Clear to auscultation bilaterally Cardiovascular: Regular rate/rhythm, Normal S1 S2 Capillary refill: <2 Seconds Gastrointestinal: Soft and benign, W/out hepatosplenomegaly Musculoskeletal: No clubbing Neurological: Normal speech, Normal strength at 5/5 x4 extr Laboratory Data at Discharge: WBC 5.3 K/uL (4.3-10.9) D 10/13/19 05:24 Hgb 11.5 g/dL (13.6-17.9) L 10/13/19 05:24 Hct 31.4 % (39.6-49.0) L 10/13/19 05:24 Plt Count 144 K/uL (152-406) L D 10/13/19 05:24 PT 11.5 SECONDS (9.5-12.5) 10/10/19 23:30 INR 0.97 10/10/19 23:30 APTT 42.2 SECONDS (24.3-36.9) H 10/10/19 23:30 Sodium 139 mmol/L (136-145) 10/13/19 05:24 Potassium 3.0 mmol/L (3.5-5.1) L 10/13/19 05:24 BUN 10 mg/dL (7-18) 10/13/19 05:24 Creatinine 0.62 mg/dL (0.55-1.3) 10/13/19 05:24 Glucose 188 mg/dL (74-106) H 10/13/19 05:24 Phosphorus 2.0 mg/dL (2.5-4.9) L 10/13/19 05:24 Magnesium 2.0 mg/dL (1.8-2.4) 10/13/19 05:24 Total Bilirubin 0.5 mg/dL (0.2-1.0) 10/10/19 23:30 AST 80 U/L (15-37) H 10/10/19 23:30 ALT 60 U/L (12-78) 10/10/19 23:30 Alkaline Phosphatase 153 U/L (45-117) H 10/10/19 23:30 Triglycerides 115 mg/dL (<150) 10/12/19 04:28 Cholesterol 118 mg/dL (<200) 10/12/19 04:28 HDL Cholesterol 44 mg/dL (40-60) 10/12/19 04:28 Cholesterol/HDL Ratio 2.68 10/12/19 04:28 Amylase 21 U/L (25-115) L 10/10/19 23:30 Lipase 87 U/L (73-393) 10/10/19 23:30 Home Medications: Insulin -Regular Human [Novolin -R*] 5 unit SQ TIDWM #1 vial 01/13/19 Insulin Glargine Human [Lantus*] 15 units SQ DAILY WITH BREAKFAST #1 ml 10/13/19 Multivitamin [Daily Multivitamin] 1 each PO DAILY #30 tablet 10/13/19 Pantoprazole [Protonix Tab] 40 mg PO DAILY #30 tab 10/13/19 New Medications: Multivitamin [Daily Multivitamin] 1 each PO DAILY #30 tablet Insulin Glargine Human [Lantus*] 15 units SQ DAILY WITH BREAKFAST #1 ml Pantoprazole [Protonix Tab] 40 mg PO DAILY #30 tab Diet: ADA Time spent managing pt's care (in minutes): 45
== END 2019-10-13 12:35 | disposition home or self-care (01) | DRG 871 ==
LOC: ER 23:10 → ERHOLD 10-11 01:55 → 2ND 10-11 21:02
PROVIDERS: ADMIT Internal Medicine; ATTEND Family Medicine
DX: A41.9 Sepsis, unspecified organism (principal); E10.10 Type 1 diabetes mellitus with ketoacidosis without coma; N17.9 Acute kidney failure, unspecified; K92.2 Gastrointestinal hemorrhage, unspecified; T38.3X6A Underdosing of insulin and oral hypoglycemic [antidiabetic] drugs, initial encounter; Z91.120 Patient's intentional underdosing of medication regimen due to financial hardship; Z79.4 Long term (current) use of insulin; Z56.0 Unemployment, unspecified; Z11.59 Encounter for screening for other viral diseases
CPT/HCPCS: 36415; 71045; 80048; 80061; 80076; 81003; 82010; 82150; 82274; 82550; 82553; 82805; 82947; 83036; 83605; 83690; 83735; 84100; 84132; 84145; 84436; 84439; 84443; 84481; 84484; 85025; 85610; 85730; 87040; 93005; 96365; 96366; 96375; 99285; C9113; J0696; J1815; J2405; J3475; J3480; J7030; J7040; J7799; U0002